=== PATIENT | male | born 1965 | race African-American/Black ===

== ENCOUNTER 2017-05-17 21:27 | Inpatient (IN) | payer SELFPAY ==
[~2017-05-17] VITALS: Ht 172.7 cm; Wt 87.6 kg
--- NOTE | ~2017-05-17 | CON ---
[place], [place] REPORT OF CONSULTATION NAME: JUSTIN GIBSON UNIT #: [id number] ROOM: 412 DOCTOR: KIERA CORNELIUS MD BIRTHDATE: [birth year] DOS: 05/18/2017 REQUESTING PHYSICIAN: Dr. Araujo INDICATION: Chest pain. ASSESSMENT: 1. Current presentation with chest pain, severe, and sudden onset. 2. History of similar presentation 4 years ago with known acute pericarditis. 3. Active tobacco abuse. 4. Chills with decreased appetite and weight loss. 5. Hypertension. 6. Hyperlipidemia. 7. Obesity with probable obstructive sleep apnea. PLAN: 1. Cycle cardiac enzymes. 2. Check sed rate. 3. Check CRP. 4. Initiate Naprosyn mg q. 8 hours. 5. Echocardiogram. 6. Stress test will be considered after above results are available and can be done as an outpatient. 7. Lipid management for an LDL less than 100 mg/dL. 8. Smoking cessation was emphasized. 9. Consider sleep study. 10. Early followup as an outpatient within 2-4 weeks upon discharge. HISTORY AND PHYSICAL: The patient is a pleasant 51-year-old -Portuguese gentleman unknown to our practice, was referred for Dr. Araujo for further evaluation of complaint of chest pain. Apparently, this woke up the patient yesterday. It was severe from the beginning; the pain was almost 7-8/10, continued even until now, slightly improved when patient went to the Emergency Room after taking some medication; he is not sure of exactly what was it. The patient though had a nitroglycerin patch. No sublingual nitroglycerin was given. The patient prior to that had been doing relatively well. He does not follow a regular exercise program, but easily can walk more than a mile without any provoked cardiac complaint. He sleeps on one pillow with no reported PND, orthopnea or pedal edema. Never had any symptomatic palpitation or associated dizziness, lightheadedness, or near syncope. The patient has been reporting some decrease in appetite with weight loss over the past few months. Weak, tired, no energy. The pain does slightly worsen with deep inspiration, but does not improve with leaning forward or get worse with lying flat on his back. PAST MEDICAL HISTORY: As detailed in my assessment. SOCIAL HISTORY: The patient continues to smoke, has been doing this for the past 22 years about 1 pack a day. No history of heavy alcohol or illicit drug abuse. [place], [place] REPORT OF CONSULTATION NAME: JUSTIN GIBSON UNIT #: [id number] ROOM: 412 DOCTOR: KIERA CORNELIUS MD BIRTHDATE: [birth year] FAMILY HISTORY: The mother of a stroke. His father of prostate cancer, possible bypass with his father but unsure exactly of the age. He has one older sister with no heart problems. CURRENT MEDICATIONS: Lisinopril, hydrochlorothiazide, vitamin D, Protonix, Bentyl, Ativan, Restoril, Zofran. ALLERGIES: The patient has no known drug allergies. REVIEW OF SYSTEMS: Currently, the patient denies any headache, diplopia or blurry vision. No fever, no night sweats. The patient admits to chills, though. The patient did have abdominal pain on presentation, but no current abdominal pain, no bright blood per rectum, no tarry stools. The patient admits to joint pain, but no muscular pain. No anxiety, no depression. No polyuria, no polydipsia. No skin rash. Review of all other systems has been negative. PHYSICAL EXAMINATION: GENERAL: The patient is alert, oriented x3, quite pleasant, sitting up in bed in no apparent distress. VITAL SIGNS: Blood pressure 130/80, heart rate 83, respiratory rate of 14, temperature 97.7. HEENT: Extraocular muscles intact. Pupils equal, round, reactive to light. Conjunctivae, no pallor. Throat, no petechiae. NECK: Good upstroke. Unable to appreciate any bruit. No lymphadenopathy, no thyromegaly. HEART: S1, S2 with a faint holosystolic murmur at the left upper sternal border. No rub, no sternal heave. CHEST AND BACK: No deformities. LUNGS: Clear to auscultation. Good air movement. No wheezing, rales. ABDOMEN: Obese, soft, nontender, present bowel sounds, no masses, no bruits. LOWER EXTREMITIES: There is no edema with good distal pulses. NEUROLOGIC: Grossly nonfocal. SKIN: No significant rash. Electrocardiogram showing normal sinus rhythm with poor R-wave progression, mild nonspecific ST-T changes throughout the EKG. LABORATORY DATA: White count 4.6, hemoglobin 13.1, potassium 3.6, creatinine 0.7, GFR more than 60%. Hemoglobin A1c 5.9. Troponin less than 0.015. Vitamin D 14. Free thyroxine is normal. Folate 7.3. [place], [place] REPORT OF CONSULTATION NAME: JUSTIN GIBSON UNIT #: [id number] ROOM: 412 DOCTOR: KIERA CORNELIUS MD BIRTHDATE: [birth year] KIERA CORNELIUS MD CM:CONSTR:REPORT OF CONSULTATION 1143 05/19/17 0108 interface
--- NOTE | ~2017-05-17 | O ---
[place], [place] OPERATIVE NOTE NAME: JUSTIN GIBSON UNIT #: [id number] ROOM: 412 DOCTOR: VER[facility] BIRTH[facility] [birth year] DOS: GASTRO-ENDOSCOPIC REPORT. REPORT #1 INDICATIONS: The patient presented with epigastric pain with chief complaint of blood in stool, undergoing investigation. PROCEDURE: Today's procedure part of investigation is panendoscopy and colonoscopy. PREMEDICATION: Versed and Diprivan. SCOPE: Olympus forward-viewing colonoscope 10L video. REPORT: After putting the patient in the left lateral position and after application of lubricant to rectal pouch and digital examination, scope was introduced. Thereafter, under direct visualization, I advanced through the length of colon without difficulty. The mid ascending colon we were able to visualize, otherwise there was solid stool beyond this point. A short segment of 5 cm length in sigmoid colon with ____ folds was noticed and there was no necrosis, no ulceration. Biopsy obtained. This could have been contributed of noticing blood in the stool. The patient extubated after that and photographed and tolerated the procedure well. IMPRESSION: Short segment nonspecific segmental colitis of sigmoid colon, status post biopsy, does not require any specific treatment. REPORT #2 INDICATIONS: The patient has presented with epigastric abdominal pain, atypical chest pain. The patient with history of heavy alcohol consumption with blood alcohol level of 240+, admitted. The patient's H and H have not compromised. The patient has been complaining of abdominal pain; however. His ____ alcohol level was high. His C-reactive protein was normal. His troponin was unremarkable. Chest x-ray was no active disease. CBC differential was reassessed, platelet count is 151. PAST MEDICAL HISTORY: Hypertension, right knee arthritis. PAST SURGICAL HISTORY: Cholecystectomy. SOCIAL HISTORY: Smoker, alcohol consumer. FAMILY HISTORY: Noncontributory. ALLERGIES: To no known medications. MEDICATIONS: Lisinopril and hydrochlorothiazide. [place], [place] OPERATIVE NOTE NAME: JUSTIN GIBSON UNIT #: [id number] ROOM: 412 DOCTOR: VER[facility] BIRTHDATE: [birth year] PROCEDURE: Today's procedure part of investigation of epigastric pain is panendoscopy plus biopsy. PREMEDICATION: Versed and Diprivan. SCOPE: Olympus forward-viewing gastroscope Q10 video. REPORT: After putting the patient in the left lateral position and after application of lubricant to the scope, the scope was introduced. Thereafter, under direct visualization, I advanced through the length of the esophagus without difficulty. Gastric pouch was entered. Gastritis seen. Antral biopsy was obtained. Duodenal bulb, second and third part within normal limits. The patient extubated, tolerated procedure well. IMPRESSION: Gastritis, status post biopsy. PLAN AND DISCUSSION: Protonix 40 mg every day p.o. would suffice. We are going to start him on a regular diet. He is going to be receiving some detox precaution modalities and then clinical reassessment. Thank you very much indeed. ARLENE GILLESPIE MD CM:OPRECORD:OPERATIVE NOTE 1540 05 ARLENE GILLESPIE MD 05/18/172205 interface
[2017-05-17 21:27] VITALS: BP 163/98
[~2017-05-17 21:27] MED LIST: VICODIN ES 7501 TAB PO
[2017-05-17 21:42] LABS: BASO % 0.7 % (0.0-1.0); EOS # 0.3 10*3/uL (0.0-0.4); EOS % 4.8 % (1.0-4.0); HEMATOCRIT 42.9 % (42.0-52.0); HEMOGLOBIN 14.3 g/dl (14.0-18.0); LYMPH # 2.7 10*3/uL (1.3-4.4); LYMPH % 48.1 % (27.0-41.0); MEAN CELL VOLUME 97.5 fl (80.0-94.0); MEAN CORPUSCULAR HGB 32.5 pg (27.0-31.0); MEAN CORPUSCULAR HGB CONC 33.3 g/dl (33.0-37.0); MEAN PLATELET VOLUME 9.5 fl (9.6-12.3); MONO # 0.4 10*3/uL (0.1-1.0); MONO % 6.2 % (3.0-9.0); NEUT # 2.3 10*3/uL (2.3-7.9); PLATELET COUNT AUTOMATED 177 10*3/uL (130-400); RED CELL DISTRI WIDTH 14.4 % (0-14.5); WHITE BLOOD COUNT 5.7 10*3/uL (4.8-10.8)
[2017-05-17 21:52] LABS: ACT PARTIAL THROMBO TIME 26.1 SECONDS (20.8-31.5); INTERNATIONAL NORM RATIO 0.9 (2.0-3.5)
[2017-05-17 21:59] LABS: ALBUMIN 3.8 gm/dl (3.1-4.5); ALKALINE PHOSPHATASE 91 U/L (45-117); BUN 11 mg/dl (7-24); CHLORIDE 105 mmol/L (98-107); CREATININE 0.89 mg/dL (0.70-1.30); MAGNESIUM 1.7 mg/dL (1.5-2.1); SGOT/AST 50 IU/L (3-35); SGPT/ALT 33 U/L (12-78); SODIUM 141 mmol/L (136-145); TOTAL PROTEIN 7.8 gm/dL (6.4-8.2); TROPONIN I < 0.015 ng/ml (<0.045)
[2017-05-17 22:00] VITALS: BP 152/90
[2017-05-17 23:00] VITALS: BP 148/89
--- NOTE | 2017-05-17 23:26 | NUR ---
A 51, admitted to , under the services of ADI Salmon DO with a diagnosis of CHEST PAIN. Chief complaint is CHEST PAIN. Patient arrived via bed from ER. Monitor applied. Initial assessment completed. Vital signs taken and recorded. ADI SALMON DO notified of admission to the unit. Orders received. See assessment for past medical history, medications and allergies. Patient and/or family oriented to unit. [facility] reviewed. Clothing/patient valuable form completed. PAT DANIEL
[2017-05-17] MEDS ORDERED: HYDR25T PO (23:58)
[2017-05-17] MEDS ORDERED: LISINOPRIL20 MG PO (23:58)
[2017-05-18] VITALS (9 sets, daily range): BP systolic 130–158; BP diastolic 80–102
[2017-05-18 00:46] LABS: URINE AMPHETAMINES < 1000 (1000ng/ml); URINE BARBITURATES < 200 (200ng/ml); URINE BENZODIAZEPINES < 200 (200ng/ml); URINE CANNABINOIDS (THC) < 50 (50ng/ml); URINE COCAINE < 300 (300ng/ml); URINE METHADONE < 300 (300ng/ml); URINE OPIATES < 300 (300ng/ml)
[2017-05-18 00:47] LABS: URINE PHENCYCLIDINE < 25 (25ng/ml)
--- NOTE | 2017-05-18 01:00 | NUR ---
PT. REQUESTED THAT I CONTACT HIS COUSIN SUE IN THE MORNING TO LET HER KNOW THAT HE IS HERE, AND TO PASS ALONG THE PASSCODE THAT HE PROVIDED US WITH TO HIS KIDS.
--- NOTE | 2017-05-18 01:33 | NUR ---
SPOKE WITH DR. NEFF AT THIS TIME REGARDING THIAMINE ORDER THAT IS CURRENTLY NOT IN PYXIS. DR. NEFF STATED THAT THIS MED CAN BE HELD OFF UNLESS THE PT. HAS DT'S.
[2017-05-18 04:13] LABS: BASO % 0.7 % (0.0-1.0); EOS # 0.3 10*3/uL (0.0-0.4); EOS % 7.4 % (1.0-4.0); HEMATOCRIT 38.4 % (42.0-52.0); HEMOGLOBIN 13.1 g/dl (14.0-18.0); LYMPH # 2.5 10*3/uL (1.3-4.4); MEAN CELL VOLUME 97.5 fl (80.0-94.0); MEAN CORPUSCULAR HGB 33.2 pg (27.0-31.0); MEAN CORPUSCULAR HGB CONC 34.1 g/dl (33.0-37.0); MEAN PLATELET VOLUME 8.8 fl (9.6-12.3); MONO # 0.3 10*3/uL (0.1-1.0); MONO % 7.2 % (3.0-9.0); NEUT # 1.4 10*3/uL (2.3-7.9); NEUT % 30.5 % (47.0-73.0); PLATELET COUNT AUTOMATED 151 10*3/uL (130-400); RED BLOOD COUNT 3.94 10*6/uL (4.50-5.90); RED CELL DISTRI WIDTH 14.4 % (0-14.5); WHITE BLOOD COUNT 4.6 10*3/uL (4.8-10.8)
[2017-05-18 04:43] LABS: ALBUMIN 3.5 gm/dl (3.1-4.5); ALKALINE PHOSPHATASE 76 U/L (45-117); BUN 11 mg/dl (7-24); CHLORIDE 107 mmol/L (98-107); CREATININE 0.72 mg/dL (0.70-1.30); FREE T4 0.81 ng/dl (0.76-1.46); MAGNESIUM 1.7 mg/dL (1.5-2.1); PHOSPHOROUS 4.8 mg/dL (2.5-4.9); POTASSIUM 3.6 mmol/L (3.5-5.1); SGOT/AST 46 IU/L (3-35); SGPT/ALT 26 U/L (12-78); SODIUM 145 mmol/L (136-145)
[2017-05-18 04:45] LABS: ACT PARTIAL THROMBO TIME 26.6 SECONDS (20.8-31.5)
[2017-05-18 06:37] LABS: VITAMIN D, 25-HYDROXY 14.7 ng/mL (30-100)
--- NOTE | 2017-05-18 08:40 | NUR ---
Skin Carver in to talk to patient. Patient states lives at HOME ALONE with . There are 16 steps in the home. Physician: [facility]acy: [facility] [place] Home health services: NONE Patient's level of ADLs: INDEPENDENT Patient has working utilities: YES DME: NONE Follow-up physician's appointment after d/c: Does patient want to access PORTAL?: Discharge plan HOME. YAMILETH LEDEZMA
--- NOTE | 2017-05-18 12:30 | NUR ---
PT LEFT FLOOR TO SURGERY FOR EGD, AND COLO. NOTIFIED PROCESS DESIGNER.
--- NOTE | 2017-05-18 13:05 | NUR ---
Patient not available for echo. He is in surgery for other proedure.
--- NOTE | 2017-05-18 16:30 | NUR ---
PATIENT RETURNED TO FLOOR FROM [facility]. PATIENT AWAKE, ALERT AND ORINTED.
--- NOTE | 2017-05-18 18:42 | NUR ---
PT GIVEN PRN NARCO FOR PAIN. WILL CONTINUE TO MONITOR PT.
[2017-05-19] VITALS: BP 146/88
--- NOTE | 2017-05-19 00:03 | NUR ---
PT. REQUESTED PAIN MEDICATION FOR PAIN RATED 7/10. WILL EVALUATE EFFECTIVENESS.
[2017-05-19 05:49] LABS: ALBUMIN 3.2 gm/dl (3.1-4.5); BUN 16 mg/dl (7-24); CHLORIDE 102 mmol/L (98-107); POTASSIUM 3.5 mmol/L (3.5-5.1); SODIUM 141 mmol/L (136-145)
[2017-05-19 05:53] LABS: ALKALINE PHOSPHATASE 70 U/L (45-117); BASO % 0.4 % (0.0-1.0); CREATININE 0.76 mg/dL (0.70-1.30); EOS # 0.2 10*3/uL (0.0-0.4); EOS % 5.2 % (1.0-4.0); HEMATOCRIT 38.1 % (42.0-52.0); HEMOGLOBIN 12.8 g/dl (14.0-18.0); LYMPH % 43.2 % (27.0-41.0); MEAN CELL VOLUME 97.2 fl (80.0-94.0); MEAN CORPUSCULAR HGB 32.7 pg (27.0-31.0); MEAN CORPUSCULAR HGB CONC 33.6 g/dl (33.0-37.0); MEAN PLATELET VOLUME 10.7 fl (9.6-12.3); MONO # 0.4 10*3/uL (0.1-1.0); MONO % 8.4 % (3.0-9.0); NEUT % 42.8 % (47.0-73.0); PLATELET COUNT AUTOMATED 148 10*3/uL (130-400); RED BLOOD COUNT 3.92 10*6/uL (4.50-5.90); SGOT/AST 44 IU/L (3-35); SGPT/ALT 28 U/L (12-78); TOTAL PROTEIN 6.7 gm/dL (6.4-8.2); WHITE BLOOD COUNT 4.7 10*3/uL (4.8-10.8)
[2017-05-19 06:09] LABS: HEPATITIS B SURFACE AG Negative (Negative); HEPATITIS C VIRUS ANTIBODY <0.1 s/co (0.0-0.9)
[2017-05-19 08:00] VITALS: BP 120/90
[2017-05-19 08:30] VITALS: BP 158/92
--- NOTE | 2017-05-19 08:30 | NUR ---
MANUAL RECHECK OF BP 158/92.
--- NOTE | 2017-05-19 08:36 | NUR ---
MEDICATED PO NORCO FOR C/O EPIGASTRIC AND ABDOMINAL PAIN. RATES PAIN 7/10.
--- NOTE | 2017-05-19 10:00 | NUR ---
NO FURTHER C/O STATES NORCO EFFECTIVE.
[2017-05-19 12:00] VITALS: BP 120/100
--- NOTE | 2017-05-19 14:30 | NUR ---
FLU VACCINE OFFERED TO PT BUT HE STATES HE WANTS IT ON DISCHARGE.
--- NOTE | 2017-05-19 14:45 | NUR ---
MEDICATED PO NORCO FOR C/O ABDOMINAL PAIN.
[2017-05-19] MEDS ORDERED: NAPROSYN500 MG PO (15:16)
[2017-05-19] MEDS ORDERED: VITAMIN D31000 UNIT PO (15:16)
[2017-05-19] MEDS ORDERED: PROTONIX40 MG PO (15:18)
--- NOTE | 2017-05-19 16:00 | NUR ---
Discharge instructions reviewed with patient. Patient receptive and verbalizes understanding. Follow-up care understood. Written instructions given to patient. pt understands to grain picker electronically sent rx from pharmacy. understands d/c instructions flu vaccine given right deltoid, information sheet given. pt without quetions at this time. discharge complete STEFFANY CHAUDHARY
[2017-05-19 16:31] VITALS: BP 135/86
== END 2017-05-19 16:00 | disposition home or self-care (01) | DRG 379 ==
LOC: ED 21:27 → 4E 22:04 → EDHOLD 22:04 → 4E 22:40
PROVIDERS: Emergency Medicine; Internal Medicine; ADMIT Internal Medicine
DX: K92.2 Gastrointestinal hemorrhage, unspecified (principal); I10 Essential (primary) hypertension; F17.200 Nicotine dependence, unspecified, uncomplicated; K29.70 Gastritis, unspecified, without bleeding; K52.9 Noninfective gastroenteritis and colitis, unspecified; E78.5 Hyperlipidemia, unspecified; G47.33 Obstructive sleep apnea (adult) (pediatric); E66.9 Obesity, unspecified; R63.4 Abnormal weight loss; R07.89 Other chest pain; R73.9 Hyperglycemia, unspecified; E87.6 Hypokalemia; J30.2 Other seasonal allergic rhinitis; M17.11 Unilateral primary osteoarthritis, right knee; Z80.42 Family history of malignant neoplasm of prostate; Z71.6 Tobacco abuse counseling; Z90.49 Acquired absence of other specified parts of digestive tract; Z82.3 Family history of stroke; Z68.30 Body mass index [BMI] 30.0-30.9, adult

== ENCOUNTER 2017-07-25 11:34 | Inpatient (IN) | payer SELFPAY ==
[~2017-07-25] VITALS: Ht 175.2 cm; Wt 88.5 kg
[~2017-07-25 11:34] MED LIST changes: +HYDR25T PO; +LISINOPRIL20 MG PO; +NAPROSYN500 MG PO; +PROTONIX40 MG PO; +VITAMIN D31000 UNIT PO
[2017-07-25 12:03] VITALS: BP 146/92
[2017-07-25 12:46] LABS: BASO % 0.6 % (0.0-1.0); EOS # 0.1 10*3/uL (0.0-0.4); EOS % 1.2 % (1.0-4.0); HEMATOCRIT 43.8 % (42.0-52.0); HEMOGLOBIN 14.9 g/dl (14.0-18.0); LYMPH # 2.5 10*3/uL (1.3-4.4); LYMPH % 37.6 % (27.0-41.0); MEAN CELL VOLUME 95.6 fl (80.0-94.0); MEAN CORPUSCULAR HGB 32.5 pg (27.0-31.0); MEAN PLATELET VOLUME 9.6 fl (9.6-12.3); MONO # 0.5 10*3/uL (0.1-1.0); MONO % 7.2 % (3.0-9.0); NEUT # 3.5 10*3/uL (2.3-7.9); NEUT % 53.1 % (47.0-73.0); PLATELET COUNT AUTOMATED 201 10*3/uL (130-400); RED BLOOD COUNT 4.58 10*6/uL (4.50-5.90); RED CELL DISTRI WIDTH 14.3 % (0-14.5); WHITE BLOOD COUNT 6.6 10*3/uL (4.8-10.8)
--- NOTE | 2017-07-25 12:47 | NUR ---
PT REMAINS W/O ACUTE DISTRESS NOTED AWAITING ALL RESULTS FOR ADDITIONAL PLAN OF CARE,PT POSITIONED FOR COMFORT AND NO ADDITIONAL COMPLAINTS VOICED.
[2017-07-25 13:01] LABS: ALBUMIN 3.9 gm/dl (3.1-4.5); ALKALINE PHOSPHATASE 91 U/L (45-117); BUN 13 mg/dl (7-24); CHLORIDE 106 mmol/L (98-107); CREATININE 0.68 mg/dL (0.70-1.30); POTASSIUM 3.3 mmol/L (3.5-5.1); SGOT/AST 44 IU/L (3-35); SGPT/ALT 25 U/L (12-78); SODIUM 143 mmol/L (136-145); TOTAL PROTEIN 8.1 gm/dL (6.4-8.2)
[2017-07-25 13:42] VITALS: BP 138/88
--- NOTE | 2017-07-25 13:45 | NUR ---
PT EATING AND TAKING FLUIDS WHILE IN ED WITH FAMILY @ BEDSIDE,SAFETY PRECAUTIONS INTACT AND CALL LIGHT WITHIN REACH.
--- NOTE | 2017-07-25 15:15 | NUR ---
LACTIC ACID @ 4.2,BELLE PUCKETT PA-C NOTIFIED.
--- NOTE | 2017-07-25 15:27 | NUR ---
A 51, admitted to , under the services of XIAO Ballard DO with a diagnosis of PNEUMONITIS. Chief complaint is COUGH. Patient arrived via wheel chair from ER. Monitor applied. Initial assessment completed. Vital signs taken and recorded. XIAO BALLARD DO notified of admission to the unit. Orders received. See assessment for past medical history, medications and allergies. Patient and/or family oriented to unit. [facility] reviewed. Clothing/patient valuable form completed. DUSTY MEJÍA
[2017-07-25 16:00] VITALS: BP 154/94
--- NOTE | 2017-07-25 17:30 | NUR ---
PRN PAIN MED GIVEN FOR 8/10 HEADACHE.
--- NOTE | 2017-07-25 18:04 | NUR ---
PT HAS ALREADY HAD THE PNEUMOCOCCAL VACCINE THIS YEAR AND IS REFUSING THE FLU VACCINE AT THIS TIME.
--- NOTE | 2017-07-25 18:30 | NUR ---
PRN PAIN MED NOT EFFECTIVE, PT RATES HIS PAIN STILL 8/10, COMFORT MEASURES INITIATED. WILL MEDICATE WITH SOMETHUING STRONGER VINCENT.
[2017-07-25 20:00] VITALS: BP 150/81
--- NOTE | 2017-07-25 20:56 | NUR ---
PRN NORCO GIVEN FOR PT COMPLAINTS OF HEADACHE RATING IT 7/10. CALL LIGHT WITHIN REACH, WILL MONITOR
[2017-07-26] VITALS: BP 148/80; BP 152/92
--- NOTE | 2017-07-26 06:09 | NUR ---
PRN NORCO GIVEN FOR PT COMPLAINTS OF HEADACHE RATING IT A 6 OUT OF 10. CALL LIGHT WITHIN REACH, WILL MONITOR
[2017-07-26 06:26] LABS: BASO % 0.2 % (0.0-1.0); HEMATOCRIT 41.5 % (42.0-52.0); HEMOGLOBIN 14.3 g/dl (14.0-18.0); LYMPH # 0.7 10*3/uL (1.3-4.4); LYMPH % 14.3 % (27.0-41.0); MEAN CELL VOLUME 93.7 fl (80.0-94.0); MEAN CORPUSCULAR HGB 32.3 pg (27.0-31.0); MEAN CORPUSCULAR HGB CONC 34.5 g/dl (33.0-37.0); MEAN PLATELET VOLUME 9.9 fl (9.6-12.3); MONO % 0.9 % (3.0-9.0); NEUT # 3.9 10*3/uL (2.3-7.9); NEUT % 83.7 % (47.0-73.0); PLATELET COUNT AUTOMATED 209 10*3/uL (130-400); RED BLOOD COUNT 4.43 10*6/uL (4.50-5.90); RED CELL DISTRI WIDTH 13.9 % (0-14.5); WHITE BLOOD COUNT 4.6 10*3/uL (4.8-10.8)
[2017-07-26 07:04] LABS: BUN 11 mg/dl (7-24); CHLORIDE 102 mmol/L (98-107); CREATININE 0.79 mg/dL (0.70-1.30); POTASSIUM 4.1 mmol/L (3.5-5.1); SODIUM 139 mmol/L (136-145)
[2017-07-26 07:10] LABS: THYROID STIM HORMONE (HS) 0.266 uIU/ml (0.358-4.75)
[2017-07-26 08:00] VITALS: BP 162/80
--- NOTE | 2017-07-26 08:30 | NUR ---
Senior Accounting Analyst in to talk to patient. Patient states lives at home alone. There are 13 steps in the home. Physician: no family physician Pharmacy: [facility] Home health services: none Patient's level of ADLs: INDEPENDENT Patient has working utilities: no he doesn't have water at the moment. He is hoping to work on the pipes this weekend. DME: none Follow-up physician's appointment after d/c: will be made by hospitalist nurse director upon discharge Does patient want to access PORTAL?: no Discharge plan discussed with patient. He lives home alone. He is independent in his ADLs and ambulation. Spoke to Jo Ann in the hospitalist office regarding giving the patient a list of physicians. He currently doesn't have water at home. He is hoping to be able to work on the water pipes this weekend. Denies any home needs. When medically stable he will be discharged to home. ADAL HUITRON
[2017-07-26 08:32] LABS: VITAMIN D, 25-HYDROXY 8.7 ng/mL (30-100)
--- NOTE | 2017-07-26 09:19 | NUR ---
MEDICATED PO ORDERED PER PT REQUESTW ITH TYLENOL FOR C/O GARSIA. SEE EMAR. MED REC UPDATED WITH PT.
--- NOTE | 2017-07-26 10:08 | NUR ---
PT CONTINUES TO C/O TEMPORAL GARSIA INCREASING WITH COUGH. MEDICATED PO ORDERED PER PT REQUESTW [facility] 1 TAB. SEE EMAR.
--- NOTE | 2017-07-26 10:30 | NUR ---
DR GONZALEZ INFORMED THAT HOME MEDS HAVE NOT BEEN ORDERED AT THIS TIME.
--- NOTE | 2017-07-26 11:30 | NUR ---
PT STATES MEDICATION EFFECTIVE IN RELIEVING GARSIA. WILL CONTINUE TO MONITOR.
[2017-07-26 12:00] VITALS: BP 160/92
[2017-07-26 13:00] VITALS: BP 151/79
--- NOTE | 2017-07-26 14:32 | NUR ---
MEDICATED PO ORDERED PER PT REQUEST WITH NORCO FOR CONTINUED TEMPORAL GARSIA. SEE EMAR.
--- NOTE | 2017-07-26 15:25 | NUR ---
AMBULATORY IN HALLS WITH .
--- NOTE | 2017-07-26 15:26 | NUR ---
AMBULATORY IN HALLS THIS SHIFT.
[2017-07-26 16:00] VITALS: BP 121/78
[2017-07-26 20:00] VITALS: BP 149/84
--- NOTE | 2017-07-26 21:13 | NUR ---
PRN NORCO GIVEN FOR PT COMPLAINTS OF A HEADACHE PRN TESSALON PERLE GIVEN FOR PT COMPLAINTS OF PERSISTANT COUGH. HEADACHE RATED 6/10. CALL LIGHT WITHIN REACH, WILL MONITOR
--- NOTE | 2017-07-26 22:00 | NUR ---
PRN MEDICATION APPEARS EFFECTIVE, PT SLEEPING
--- NOTE | 2017-07-26 23:00 | NUR ---
PRN MEDICATION APPEARS EFFECTIVE, PT SLEEPING
[2017-07-27] VITALS: BP 146/80; BP 149/93
--- NOTE | 2017-07-27 05:10 | NUR ---
PRN TESSALON PERLE AND NORCO GIVEN FOR PT COMPLAINTS OF HACKING COUGH AND HEADACHE 03/22. CALL LIGHT WITHIN REACH, WILL MONITOR
--- NOTE | 2017-07-27 06:23 | NUR ---
PRN MEDICATION APPEARS EFFECTIVE, PT SLEEPING
[2017-07-27 06:44] LABS: BASO % 0.1 % (0.0-1.0); HEMATOCRIT 39.9 % (42.0-52.0); LYMPH # 0.9 10*3/uL (1.3-4.4); LYMPH % 8.2 % (27.0-41.0); MEAN CELL VOLUME 94.3 fl (80.0-94.0); MEAN CORPUSCULAR HGB 33.1 pg (27.0-31.0); MEAN CORPUSCULAR HGB CONC 35.1 g/dl (33.0-37.0); MONO # 0.3 10*3/uL (0.1-1.0); MONO % 2.5 % (3.0-9.0); NEUT # 10.1 10*3/uL (2.3-7.9); NEUT % 88.6 % (47.0-73.0); PLATELET COUNT AUTOMATED 195 10*3/uL (130-400); RED BLOOD COUNT 4.23 10*6/uL (4.50-5.90); RED CELL DISTRI WIDTH 13.8 % (0-14.5); WHITE BLOOD COUNT 11.4 10*3/uL (4.8-10.8)
[2017-07-27 06:57] LABS: ALBUMIN 3.4 gm/dl (3.1-4.5); ALKALINE PHOSPHATASE 71 U/L (45-117); BUN 14 mg/dl (7-24); CHLORIDE 103 mmol/L (98-107); CREATININE 0.67 mg/dL (0.70-1.30); FREE T4 0.86 ng/dl (0.76-1.46); POTASSIUM 3.9 mmol/L (3.5-5.1); SGOT/AST 26 IU/L (3-35); SGPT/ALT 21 U/L (12-78); SODIUM 140 mmol/L (136-145); TOTAL PROTEIN 7.4 gm/dL (6.4-8.2)
--- NOTE | 2017-07-27 07:50 | NUR ---
DR GONZALEZ IN TO SEE PT.
--- NOTE | 2017-07-27 08:30 | NUR ---
Beet Flumer in to see patient. He is concerned if he is sent home on breathing treatments he will need a nebulizer. Spoke to Clarita, nurse director of the hospitalist, regarding his request. When medically stable he will be discharged to home.
--- NOTE | 2017-07-27 09:50 | NUR ---
MEDICATED PO ORDERED PER PT REQUEST [facility]AUNCE[facility] COTTRELL 1 TAB FOR C/O TEMPORAL GARSIA. SEE EMAR.
--- NOTE | 2017-07-27 10:30 | NUR ---
PAIN MEDICATION EFFECTIVE PER PT IN RELIEVING GARSIA. WILL CONTINUE TO MONITOR.
[2017-07-27] MEDS ORDERED: PREDNISONE10 MG PO (11:42)
[2017-07-27] MEDS ORDERED: ZITHROMAX250 MG PO (11:42)
[2017-07-27 12:00] VITALS: BP 134/85
--- NOTE | 2017-07-27 13:24 | NUR ---
Discharge instructions reviewed with patient/family. Patient receptive and verbalizes understanding. Follow-up care arranged. Written instructions given to patient/family. GALE CÁRDENAS
== END 2017-07-27 13:20 | disposition home or self-care (01) | DRG 871 ==
LOC: ED 11:34 → 4E 14:59 → EDHOLD 14:59 → 4E 15:21
PROVIDERS: Physician Assistant; Student in an Organized Health Care Education/Training Program; ADMIT Internal Medicine
DX: A41.9 Sepsis, unspecified organism (principal); J18.9 Pneumonia, unspecified organism; M17.11 Unilateral primary osteoarthritis, right knee; E87.6 Hypokalemia; D72.810 Lymphocytopenia; I10 Essential (primary) hypertension; J00 Acute nasopharyngitis [common cold]; Z79.899 Other long term (current) drug therapy; Z90.49 Acquired absence of other specified parts of digestive tract; Z80.42 Family history of malignant neoplasm of prostate; Z82.3 Family history of stroke; Z71.6 Tobacco abuse counseling

== ENCOUNTER → 2017-07-30 | Outpatient (CLI) | payer SELFPAY ==
[~2017-07-30] MED LIST changes: +PREDNISONE10 MG PO; +ZITHROMAX250 MG PO
== END | disposition home or self-care (01) ==
LOC: RESCLI 11:09
DX: Z09 Encounter for follow-up examination after completed treatment for conditions other than malignant neoplasm (principal); I10 Essential (primary) hypertension; K21.9 Gastro-esophageal reflux disease without esophagitis; J18.9 Pneumonia, unspecified organism; E55.9 Vitamin D deficiency, unspecified; Z71.6 Tobacco abuse counseling; Z72.0 Tobacco use

== ENCOUNTER → 2017-08-07 | Outpatient (CLI) | payer SELFPAY | END | disposition home or self-care (01) | LOC: RESCLI 02:11 | DX: I10 Essential (primary) hypertension (principal); E55.9 Vitamin D deficiency, unspecified; R00.0 Tachycardia, unspecified; R05 Cough; F17.210 Nicotine dependence, cigarettes, uncomplicated; Z71.6 Tobacco abuse counseling; Z90.49 Acquired absence of other specified parts of digestive tract ==

== ENCOUNTER 2018-01-28 11:50 | Emergency (ER) | payer OTHER ==
[~2018-01-28] VITALS: Ht 175.2 cm; Wt 93.0 kg
[2018-01-28] MEDS ORDERED: NAPROSYN500 MG PO (11:56)
== END 2018-01-28 12:00 | disposition home or self-care (01) ==
LOC: ED 11:50
DX: M25.562 Pain in left knee (principal); I10 Essential (primary) hypertension; M13.861 Other specified arthritis, right knee; Z79.899 Other long term (current) drug therapy; W18.40XA Slipping, tripping and stumbling without falling, unspecified, initial encounter; Y93.89 Activity, other specified; Y92.89 Other specified places as the place of occurrence of the external cause; Y99.8 Other external cause status

== ENCOUNTER → 2018-03-01 | Outpatient (CLI) | payer OTHER ==
[~2018-03-01] MED LIST changes: +ASPIRIN ADULT L81 M2 PO; +B12100 MC1 PO; +METOPROLOL SUCC25 M2 PO; +NATURE'S BLEND F1 MG PO; +TYLENOL325 M1 PO; +VITAMIN D-32000 UNIT PO; +XARE20MG PO
--- NOTE | ~2018-03-01 | EKG ---
[place], [place] ELECTROCARDIOGRAM REPORT NAME: JUSTIN GIBSON UNIT #: [id number] ROOM: DOCTOR: EPIPHANY DRAFT REPORT BIRTHDATE: [birth year] [facility] Test Date: 2018-03-01 Test Time: 16:51:18 Pat Name: JUSTIN GIBSON Department: Room: Gender: Firearms Assembly Supervisor: : 1965 Requested By: JOSE JUAN NIETO Order Number: [id number] Reading MD: Axel Jolly MD Measurements Intervals [place] Rate: 92 P: 67 AR: 157 QRS: 34 QRSD: 76 T: 32 QT: 348 QTc: 431 Interpretive Statements Sinus rhythm ST elev, probable normal early repol pattern Electronically Signed On 03-04-2018 18:39:49 PDT by Axel Jolly MD CM:EKGRPT:ELECTROCARDIOGRAM REPORT 1651 1839 JOSE JUAN GONZALEZ DRAFT REPORT JOSE JUAN NIETO
[2018-03-01 16:48] LABS: BILIRUBIN NEGATIVE (NEGATIVE); BLOOD 1+ (NEGATIVE); CLARITY CLEAR (CLEAR); COLOR YELLOW (YELLOW); GLUCOSE NEGATIVE (NEGATIVE); KETONE NEGATIVE (NEGATIVE); LEUKO ESTERASE NEGATIVE (NEGATIVE); NITRITE NEGATIVE (NEGATIVE); SPECIFIC GRAVITY 1.025 (1.005-1.030); UROBILINOGEN 0.2 E.U./dl (0.2-1.0)
[2018-03-01 16:55] LABS: BACTERIA TRACE; EPITHELIAL CELLS 0-2; WBC 0-2 wbc/hpf (0-5)
[2018-03-01 17:12] LABS: BASO % 0.4 % (0.0-1.0); EOS # 0.1 10*3/uL (0.0-0.4); EOS % 1.6 % (1.0-4.0); HEMATOCRIT 44.3 % (42.0-52.0); HEMOGLOBIN 15.1 g/dl (14.0-18.0); LYMPH # 1.9 10*3/uL (1.3-4.4); LYMPH % 34.2 % (27.0-41.0); MEAN CELL VOLUME 98.9 fl (80.0-94.0); MEAN CORPUSCULAR HGB 33.7 pg (27.0-31.0); MEAN CORPUSCULAR HGB CONC 34.1 g/dl (33.0-37.0); MONO # 0.5 10*3/uL (0.1-1.0); MONO % 9.5 % (3.0-9.0); NEUT % 54.1 % (47.0-73.0); PLATELET COUNT AUTOMATED 166 10*3/uL (130-400); RED BLOOD COUNT 4.48 10*6/uL (4.50-5.90); RED CELL DISTRI WIDTH 14.8 % (0-14.5); WHITE BLOOD COUNT 5.5 10*3/uL (4.8-10.8)
[2018-03-01 17:27] LABS: ALBUMIN 4.2 gm/dl (3.1-4.5); ALKALINE PHOSPHATASE 77 U/L (45-117); BUN 22 mg/dl (7-24); CHLORIDE 103 mmol/L (98-107); CREATININE 1.01 mg/dL (0.70-1.30); POTASSIUM 3.6 mmol/L (3.5-5.1); SGOT/AST 39 IU/L (3-35); SGPT/ALT 51 U/L (12-78); SODIUM 141 mmol/L (136-145); TOTAL PROTEIN 8.6 gm/dL (6.4-8.2)
== END | disposition home or self-care (01) ==
LOC: LAB 16:18
PROVIDERS: Orthopaedic Surgery
DX: Z01.818 Encounter for other preprocedural examination (principal); S83.242D Other tear of medial meniscus, current injury, left knee, subsequent encounter; M17.12 Unilateral primary osteoarthritis, left knee; X58.XXXD Exposure to other specified factors, subsequent encounter

== ENCOUNTER → 2018-05-07 | Outpatient (CLI) | payer OTHER, BC ==
[2018-05-07 16:32] LABS: BILIRUBIN 1+ (NEGATIVE); BLOOD 1+ (NEGATIVE); CLARITY CLEAR (CLEAR); COLOR YELLOW (YELLOW); GLUCOSE NEGATIVE (NEGATIVE); KETONE NEGATIVE (NEGATIVE); LEUKO ESTERASE NEGATIVE (NEGATIVE); NITRITE NEGATIVE (NEGATIVE); PH 5.5 (5.0-9.0); SPECIFIC GRAVITY >= 1.030 (1.005-1.030); UROBILINOGEN 0.2 E.U./dl (0.2-1.0)
[2018-05-07 16:34] LABS: BASO % 0.4 % (0.0-1.0); EOS # 0.1 10*3/uL (0.0-0.4); EOS % 2.1 % (1.0-4.0); HEMATOCRIT 43.8 % (42.0-52.0); HEMOGLOBIN 15.2 g/dl (14.0-18.0); LYMPH # 1.6 10*3/uL (1.3-4.4); LYMPH % 34.7 % (27.0-41.0); MEAN CELL VOLUME 99.1 fl (80.0-94.0); MEAN CORPUSCULAR HGB 34.4 pg (27.0-31.0); MEAN CORPUSCULAR HGB CONC 34.7 g/dl (33.0-37.0); MEAN PLATELET VOLUME 9.9 fl (9.6-12.3); MONO # 0.5 10*3/uL (0.1-1.0); MONO % 11.1 % (3.0-9.0); NEUT # 2.4 10*3/uL (2.3-7.9); NEUT % 51.5 % (47.0-73.0); PLATELET COUNT AUTOMATED 151 10*3/uL (130-400); RED BLOOD COUNT 4.42 10*6/uL (4.50-5.90); RED CELL DISTRI WIDTH 14.2 % (0-14.5); WHITE BLOOD COUNT 4.7 10*3/uL (4.8-10.8)
[2018-05-07 16:38] LABS: BACTERIA 1+; EPITHELIAL CELLS 0-2; MUCOUS TRACE; WBC 0-2 wbc/hpf (0-5)
[2018-05-07 16:48] LABS: ALKALINE PHOSPHATASE 71 U/L (45-117); BUN 16 mg/dl (7-24); CHLORIDE 109 mmol/L (98-107); CREATININE 1.08 mg/dL (0.70-1.30); POTASSIUM 3.8 mmol/L (3.5-5.1); SGOT/AST 35 IU/L (3-35); SGPT/ALT 30 U/L (12-78); SODIUM 142 mmol/L (136-145); TOTAL PROTEIN 8.8 gm/dL (6.4-8.2)
== END | disposition home or self-care (01) ==
LOC: LAB 16:16
PROVIDERS: Orthopaedic Surgery
DX: S83.242A Other tear of medial meniscus, current injury, left knee, initial encounter (principal); I10 Essential (primary) hypertension; X58.XXXA Exposure to other specified factors, initial encounter; Y93.89 Activity, other specified; Y92.89 Other specified places as the place of occurrence of the external cause; Y99.8 Other external cause status

== ENCOUNTER 2018-07-30 10:57 | Emergency (ER) | payer BC ==
[~2018-07-30] VITALS: Wt 81.6 kg
[2018-07-30 11:36] LABS: BASO # 0.1 10*3/uL (0.0-0.1); BASO % 0.7 % (0.0-1.0); EOS % 0.4 % (1.0-4.0); HEMATOCRIT 43.7 % (42.0-52.0); HEMOGLOBIN 15.1 g/dl (14.0-18.0); LYMPH # 2.3 10*3/uL (1.3-4.4); LYMPH % 34.6 % (27.0-41.0); MEAN CELL VOLUME 102.1 fl (80.0-94.0); MEAN CORPUSCULAR HGB 35.3 pg (27.0-31.0); MEAN CORPUSCULAR HGB CONC 34.6 g/dl (33.0-37.0); MEAN PLATELET VOLUME 9.4 fl (9.6-12.3); MONO # 0.9 10*3/uL (0.1-1.0); MONO % 12.6 % (3.0-9.0); NEUT # 3.5 10*3/uL (2.3-7.9); NEUT % 51.6 % (47.0-73.0); PLATELET COUNT AUTOMATED 191 10*3/uL (130-400); RED BLOOD COUNT 4.28 10*6/uL (4.50-5.90); RED CELL DISTRI WIDTH 15.1 % (0-14.5); WHITE BLOOD COUNT 6.7 10*3/uL (4.8-10.8)
[2018-07-30 11:58] LABS: ALBUMIN 4.1 gm/dl (3.1-4.5); ALKALINE PHOSPHATASE 78 U/L (45-117); BUN 11 mg/dl (7-24); CHLORIDE 110 mmol/L (98-107); CREATININE 0.83 mg/dL (0.70-1.30); POTASSIUM 3.7 mmol/L (3.5-5.1); SGOT/AST 148 IU/L (3-35); SGPT/ALT 175 U/L (12-78); SODIUM 144 mmol/L (136-145); TOTAL PROTEIN 8.6 gm/dL (6.4-8.2)
[2018-07-30 12:00] LABS: TROPONIN I < 0.015 ng/ml (<0.045)
[2018-07-30] MEDS ORDERED: ZITHROMAX250 MG PO (13:15)
== END 2018-07-30 13:21 | disposition home or self-care (01) ==
LOC: ED 10:57
PROVIDERS: Emergency Medicine
DX: J40 Bronchitis, not specified as acute or chronic (principal); R11.10 Vomiting, unspecified; I10 Essential (primary) hypertension; I25.2 Old myocardial infarction; F17.200 Nicotine dependence, unspecified, uncomplicated; Z79.82 Long term (current) use of aspirin; Z79.899 Other long term (current) drug therapy

== ENCOUNTER 2018-11-10 03:13 | Emergency (ER) | payer BC ==
[~2018-11-10] VITALS: Wt 86.2 kg
[2018-11-10] MEDS ORDERED: TESSALON PERLE100 MG PO (03:25)
[2018-11-10] MEDS ORDERED: CYCLOBENZAPRINE10 MG PO (03:25)
[2018-11-10] MEDS ORDERED: AMOXICILLIN500 M2 PO (03:25)
[2018-11-10] MEDS ORDERED: PREDNISONE50 MG PO (03:25)
[2018-11-10] MEDS ORDERED: AMOXICILLI400 MG/51 PO (03:37)
== END 2018-11-10 04:12 | disposition home or self-care (01) ==
LOC: ED 03:13
DX: J40 Bronchitis, not specified as acute or chronic (principal); H66.92 Otitis media, unspecified, left ear; I10 Essential (primary) hypertension; I25.2 Old myocardial infarction; F17.200 Nicotine dependence, unspecified, uncomplicated; Z90.49 Acquired absence of other specified parts of digestive tract; Z79.82 Long term (current) use of aspirin; Z79.899 Other long term (current) drug therapy

== ENCOUNTER 2018-12-31 20:38 | Emergency (ER) | payer BC ==
[~2018-12-31] VITALS: Ht 175.2 cm; Wt 81.6 kg
[~2018-12-31 20:38] MED LIST changes: +AMOXICILLI400 MG/51 PO; +AMOXICILLIN500 M2 PO; +CYCLOBENZAPRINE10 MG PO; +PREDNISONE50 MG PO; +TESSALON PERLE100 MG PO
[2018-12-31 22:24] LABS: BASO % 0.4 % (0.0-1.0); EOS # 0.1 10*3/uL (0.0-0.4); EOS % 1.3 % (1.0-4.0); HEMATOCRIT 42.5 % (42.0-52.0); HEMOGLOBIN 14.3 g/dl (14.0-18.0); LYMPH # 2.4 10*3/uL (1.3-4.4); LYMPH % 29.6 % (27.0-41.0); MEAN CELL VOLUME 105.7 fl (80.0-94.0); MEAN CORPUSCULAR HGB 35.6 pg (27.0-31.0); MEAN CORPUSCULAR HGB CONC 33.6 g/dl (33.0-37.0); MEAN PLATELET VOLUME 9.5 fl (9.6-12.3); MONO # 0.6 10*3/uL (0.1-1.0); MONO % 7.6 % (3.0-9.0); NEUT % 60.9 % (47.0-73.0); PLATELET COUNT AUTOMATED 207 10*3/uL (130-400); RED BLOOD COUNT 4.02 10*6/uL (4.50-5.90); RED CELL DISTRI WIDTH 13.9 % (0-14.5); WHITE BLOOD COUNT 8.2 10*3/uL (4.8-10.8)
[2018-12-31 22:42] LABS: ALBUMIN 3.4 gm/dl (3.1-4.5); ALKALINE PHOSPHATASE 84 U/L (45-117); BUN 4 mg/dl (7-24); CHLORIDE 102 mmol/L (98-107); CREATININE 0.74 mg/dL (0.70-1.30); POTASSIUM 3.3 mmol/L (3.5-5.1); SGOT/AST 42 IU/L (3-35); SGPT/ALT 69 U/L (12-78); SODIUM 139 mmol/L (136-145); TOTAL PROTEIN 8.3 gm/dL (6.4-8.2)
[2018-12-31] MEDS ORDERED: KETOROLAC10 MG PO (23:09)
== END 2018-12-31 23:31 | disposition home or self-care (01) ==
LOC: ED 20:38
PROVIDERS: Nurse Practitioner Family
DX: S02.69XA Fracture of mandible of other specified site, initial encounter for closed fracture (principal); I25.2 Old myocardial infarction; I10 Essential (primary) hypertension; F17.200 Nicotine dependence, unspecified, uncomplicated; Z79.2 Long term (current) use of antibiotics; Z79.899 Other long term (current) drug therapy; Z79.82 Long term (current) use of aspirin; Z86.711 Personal history of pulmonary embolism; Z90.49 Acquired absence of other specified parts of digestive tract; Y04.2XXA Assault by strike against or bumped into by another person, initial encounter; Y93.89 Activity, other specified; Y92.89 Other specified places as the place of occurrence of the external cause; Y99.8 Other external cause status

== ENCOUNTER 2019-02-09 15:07 | Inpatient (IN) | payer BC ==
[~2019-02-09] VITALS: Ht 175.3 cm; Wt 81.6 kg
--- NOTE | ~2019-02-09 | EKG ---
[place], [place] ELECTROCARDIOGRAM REPORT NAME: JUSTIN GIBSON UNIT #: [id number] ROOM: 504 DOCTOR: LISA DRAFT REPORT BIRTHDATE: [birth year] [facility] Test Date: 2019-02-09 Test Time: 15:12:49 Pat Name: JSUTIN GIBSON Department: Room: 504 Gender: M Entry Level Sales Consultant: : 1965 Requested By: ALAN GRACE Order Number: [id number] Reading MD: Fred Smith MD Measurements Intervals [place] Rate: 89 P: 61 [place]: 174 QRS: 20 QRSD: 80 T: 30 QT: 383 QTc: 467 Interpretive Statements Sinus rhythm Probable left atrial enlargement Compared to ECG 03/16/2018 03:59:46 ST (T wave) deviation no longer present Electronically Signed On 02-12-2019 12:02:47 PDT by Fred Smith MD CM:EKGRPT:ELECTROCARDIOGRAM REPORT 1512 1202 ALAN GONZALEZ DRAFT REPORT ALAN GRACE M.D.
--- NOTE | ~2019-02-09 | EKG ---
[place], [place] ELECTROCARDIOGRAM REPORT NAME: JUSTIN GIBSON UNIT #: [id number] ROOM: 504 DOCTOR: LISA DRAFT REPORT BIRTHDATE: [birth year] [facility] Test Date: 2019-02-09 Test Time: 21:24:28 Pat Name: JUSTIN GIBSON Department: Room: 504 Gender: M Chief Hydroelectric Station Operator: Sandie aGrg : 1965 Requested By: ALAN GRACE Order Number: [id number] Reading MD: Fred Smith MD Measurements Intervals [place] Rate: 85 P: 51 [place]: 183 QRS: 29 QRSD: 79 T: 32 QT: 384 QTc: 457 Interpretive Statements Sinus rhythm Probable left atrial enlargement ST elev, probable normal early repol pattern Compared to ECG 03/16/2018 03:59:46 No significant changes Electronically Signed On 02-12-2019 12:06:16 PDT by Fred Smith MD CM:EKGRPT:ELECTROCARDIOGRAM REPORT 23 1206 ALAN GONZALEZ DRAFT REPORT ALAN GRACE M.D.
--- NOTE | ~2019-02-09 | EKG ---
[place], [place] ELECTROCARDIOGRAM REPORT NAME: JUSTIN GIBSON UNIT #: [id number] ROOM: 504 DOCTOR: LISA DRAFT REPORT BIRTHDATE: [birth year] [facility] Test Date: 2019-02-10 Test Time: 04:39:18 Pat Name: JUSTIN GIBSON Department: Room: [facility] 2 Gender: M Second Crusher: Sandie Garg : 1965 Requested By: VELVET MENDEZ Order Number: [id number] Reading MD: Fred Smith MD Measurements Intervals [place] Rate: 71 P: 53 AR: 165 QRS: 33 QRSD: 79 T: 37 QT: 404 QTc: 439 Interpretive Statements Sinus rhythm Probable left atrial enlargement ST elev, probable normal early repol pattern Baseline wander in lead(s) V5,V6 Compared to ECG 03/16/2018 03:59:46 No significant changes Electronically Signed On 02-12-2019 12:20:04 PDT by Fred Smith MD CM:EKGRPT:ELECTROCARDIOGRAM REPORT [id number] 1220 VELVET KUMAR DRAFT REPORT VELVET MENDEZ DO
--- NOTE | ~2019-02-09 | EKG ---
[place], [place] ELECTROCARDIOGRAM REPORT NAME: JUSTIN GIBSON UNIT #: [id number] ROOM: 504 DOCTOR: LISA DRAFT REPORT BIRTHDATE: [birth year] [facility] Test Date: 2019-02-09 Test Time: 17:36:41 Pat Name: JUSTIN GIBSON Department: Room: 504 Gender: M Law Enforcement Director: Sandie Garg : 1965 Requested By: ALAN GRACE Order Number: [id number] Reading MD: Fred Smith MD Measurements Intervals [place] Rate: 82 P: 55 [place]: 175 QRS: 23 QRSD: 78 T: 32 QT: 394 QTc: 461 Interpretive Statements Sinus rhythm Probable left atrial enlargement ST elev, probable normal early repol pattern Compared to ECG 03/16/2018 03:59:46 No significant changes Electronically Signed On 02-12-2019 12:03:06 PDT by Fred Smith MD CM:EKGRPT:ELECTROCARDIOGRAM REPORT [id number] 1203 ALAN GONZALEZ DRAFT REPORT ALAN GRACE M.D.
--- NOTE | ~2019-02-09 | ST ---
[place], [place] EXERCISE STRESS TEST REPORT [id number] UNIT #: [id number] ROOM: 504 DOCTOR: NATALIA CHAN MD BIRTHDATE: [birth year] DOS: 02/10/2019 LEXISCAN STRESS EKG REPORT REFERRING PHYSICIAN: Dr. Hayes. INDICATION: Central chest pain. The patient underwent a standard protocol Lexiscan stress EKG. The patient's baseline EKG showed a sinus ganga with a heart rate of 56 with a blood pressure of 134/64. The patient's peak heart rate was 100 with a blood pressure 140/70. The patient had no chest pain, no ischemic changes, no arrhythmias noted. SUMMARY OF FINDINGS: Unremarkable Lexiscan stress EKG. Please see separate report for perfusion scan results. NATALIA CHAN MD CM:STRESS:EXERCISE STRESS TEST REPORT 1648 0315 NATALIA CHAN MD
[~2019-02-09 15:07] MED LIST changes: +KETOROLAC10 MG PO
[2019-02-09 15:16] VITALS: BP 105/70
[2019-02-09 15:25] LABS: BASO # 0.1 10*3/uL (0.0-0.1); BASO % 0.9 % (0.0-1.0); EOS # 0.3 10*3/uL (0.0-0.4); EOS % 5.1 % (1.0-4.0); HEMOGLOBIN 12.7 g/dl (14.0-18.0); LYMPH # 2.6 10*3/uL (1.3-4.4); LYMPH % 49.1 % (27.0-41.0); MEAN CELL VOLUME 106.7 fl (80.0-94.0); MEAN CORPUSCULAR HGB 35.7 pg (27.0-31.0); MEAN CORPUSCULAR HGB CONC 33.4 g/dl (33.0-37.0); MEAN PLATELET VOLUME 9.2 fl (9.6-12.3); MONO # 0.4 10*3/uL (0.1-1.0); MONO % 6.8 % (3.0-9.0); NEUT % 37.9 % (47.0-73.0); PLATELET COUNT AUTOMATED 187 10*3/uL (130-400); RED BLOOD COUNT 3.56 10*6/uL (4.50-5.90); RED CELL DISTRI WIDTH 13.5 % (0-14.5); WHITE BLOOD COUNT 5.3 10*3/uL (4.8-10.8)
[2019-02-09 15:36] LABS: ACT PARTIAL THROMBO TIME 26.3 SECONDS (20.0-32.1); INTERNATIONAL NORM RATIO 0.9 (2.0-3.5)
[2019-02-09 15:42] LABS: ALBUMIN 3.5 gm/dl (3.1-4.5); ALKALINE PHOSPHATASE 84 U/L (45-117); BUN 8 mg/dl (7-24); CHLORIDE 111 mmol/L (98-107); CREATININE 0.81 mg/dL (0.70-1.30); POTASSIUM 3.6 mmol/L (3.5-5.1); SGOT/AST 119 IU/L (3-35); SGPT/ALT 105 U/L (12-78); SODIUM 144 mmol/L (136-145); TOTAL PROTEIN 7.2 gm/dL (6.4-8.2)
[2019-02-09 15:44] LABS: TROPONIN I < 0.015 ng/ml (<0.045)
[2019-02-09 16:07] VITALS: BP 100/67
--- NOTE | 2019-02-09 16:09 | NUR ---
PT RESTING ON CART MONITOR RMAINS SINUS RHYTHM. WILL CONTINUE TO MONITOR. LAURA RODRIGES RN.
--- NOTE | 2019-02-09 16:55 | NUR ---
THE PATIENTS GIRLFRIEND CALLED ASKING ABOUT TEST RESULTS. I EXPLAINED TO HER I COULD NOT TELL HER ANY INFORMATION BUT I COULD TRANSFER THE PHONE AND LEFT HER TALK TO HER S.O.. AFTER TALKING WITH THE PATIENT HE GAVE PERMISSION FOR ME TO TALK WITH HER ABOUT HIS MEDICAL CONDITION. LAURA RODRIGES RN.
[2019-02-09 17:15] VITALS: BP 110/62
[2019-02-09 18:05] VITALS: BP 103/61
--- NOTE | 2019-02-09 18:05 | NUR ---
IT WAS EXPLAINED TO THE PATIENT AND HIS DAUGHTER THAT A CT OF CHEST WAS ORDERED THE PATIENT REMAINS SINUS RHYTHM . LAURA RODRIGES RN.
--- NOTE | 2019-02-09 18:50 | NUR ---
PT RETURN FROM CAT SCAN HE IS ABLE TO EAT AT THIS TIME. THE PATIENT REMAINS IN SINUS RHYTHM. HE VOICES NO CONCERNS AT THIS TIME. LAURA FLORES RN.
--- NOTE | 2019-02-09 20:00 | NUR ---
A 53, admitted to 5E, under the services of BENEDICTO Oneal DO with a diagnosis of CHEST PAIN R/O CA. Chief complaint is CHEST PAIN, SHORTNESS OF BREATHE. Patient arrived via bed from ER. Monitor applied. Initial assessment completed. Vital signs taken and recorded. BENEDICTO ONEAL DO notified of admission to the unit. Orders received. See assessment for past medical history, medications and allergies. Patient and/or family oriented to unit. [address] visitation policy reviewed. Clothing/patient valuable form completed. ISMAEL ALVA R
[2019-02-09 20:11] VITALS: BP 155/95
--- NOTE | 2019-02-09 22:00 | NUR ---
PT RESTING IN BED. IVF INFUSING WITH NO PROBLEM. MEDICATED [facility] PO PER PRN ORDER, SEE EMAR FOR ANXIETY. CALL LIGHT IN REACH.
[2019-02-10] VITALS (8 sets, daily range): BP systolic 130–161; BP diastolic 80–98
--- NOTE | 2019-02-10 00:10 | NUR ---
PT SLEEPING IN BED, RESP-EASY AND REGULAR. OXYGEN IN USE. IVF INFUSING WITH NO PROBLEM. CALL LIGHT IN REACH. SEE SHIFT ASSESSMENT.
--- NOTE | 2019-02-10 04:00 | NUR ---
PT SLEEPING IN BED. RESP-EASY AND REGULAR OXYGEN IN USE. IVF INFUSING WITH NO PROBLEM. CALL LIGHT IN REACH.
--- NOTE | 2019-02-10 04:15 | NUR ---
PT C/O CHEST PAIN, RATES PAIN 8 ON PAIN SCALE. BP 134/88 MANUALLY. HR-64, RESP-20. PULSE OX 99%2LITERS. MEDICATED WTIH ROBAXIN PER PRN ORDER, SEE EMAR. CALLED DR. MENDEZ MADE AWARE ORDERED STAT EKG AND TROPONIN LEVEL.
--- NOTE | 2019-02-10 04:18 | NUR ---
RESPIRATORY CALLED FOR EKG
[2019-02-10 04:39] LABS: BASO % 0.8 % (0.0-1.0); EOS # 0.2 10*3/uL (0.0-0.4); EOS % 5.4 % (1.0-4.0); HEMATOCRIT 37.8 % (42.0-52.0); HEMOGLOBIN 12.5 g/dl (14.0-18.0); LYMPH # 1.6 10*3/uL (1.3-4.4); LYMPH % 42.4 % (27.0-41.0); MEAN CELL VOLUME 106.8 fl (80.0-94.0); MEAN CORPUSCULAR HGB 35.3 pg (27.0-31.0); MEAN CORPUSCULAR HGB CONC 33.1 g/dl (33.0-37.0); MONO # 0.4 10*3/uL (0.1-1.0); MONO % 9.8 % (3.0-9.0); NEUT # 1.5 10*3/uL (2.3-7.9); NEUT % 41.3 % (47.0-73.0); PLATELET COUNT AUTOMATED 177 10*3/uL (130-400); RED BLOOD COUNT 3.54 10*6/uL (4.50-5.90); RED CELL DISTRI WIDTH 13.8 % (0-14.5); WHITE BLOOD COUNT 3.7 10*3/uL (4.8-10.8)
--- NOTE | 2019-02-10 04:45 | NUR ---
EKG ON THE FLOOR AND GOT EKG
--- NOTE | 2019-02-10 04:46 | NUR ---
PT STATES CHEST PAIN IS A LITTLE BETTER RATES PAIN 5 ON PAIN SCALE 0-10. CALL LIGHT IN REACH. WILL CALL DR. MENDEZ.
--- NOTE | 2019-02-10 04:47 | NUR ---
CALLED DR. MENDEZ AWARE EKG WAS DONE AND ELEVATION IN T WAVE FROM PREVIOUS. HE WILL TAKE A LOOK AT IT.
[2019-02-10 04:55] LABS: ALKALINE PHOSPHATASE 81 U/L (45-117); BUN 9 mg/dl (7-24); CHLORIDE 113 mmol/L (98-107); CHOLESTEROL 148 mg/dL (<200); CREATININE 0.69 mg/dL (0.70-1.30); HDL CHOLESTEROL 64 mg/dl (40-60); LDL CHOLESTEROL 73 mg/dL (9-159); PHOSPHOROUS 4.5 mg/dL (2.5-4.9); POTASSIUM 3.9 mmol/L (3.5-5.1); SGOT/AST 73 IU/L (3-35); SGPT/ALT 88 U/L (12-78); SODIUM 144 mmol/L (136-145); TOTAL PROTEIN 6.8 gm/dL (6.4-8.2); TRIGLYCERIDES 54 mg/dl (<150); VLDL CHOLESTEROL 11 mg/dL (6-40)
[2019-02-10 05:01] LABS: THYROID STIM HORMONE (HS) 0.885 uIU/ml (0.358-4.75)
--- NOTE | 2019-02-10 05:05 | NUR ---
PT RESTING IN BED WITH EYES CLOSED. NOT DISTURBED. RESP-EASY AND REGULAR. OXYGEN IN USE. CALL LIGHT IN REACH.
--- NOTE | 2019-02-10 05:15 | NUR ---
PT RESTING IN BED. C/O CHEST PAIN, RATES PAIN 4 ON PAIN SCALE 0-10. BP 130/98 MANUALLY, HR-78, PULSE OX 97%2L. CALLED DR. MENDEZ MADE AWARE OF EKG CHANGES AND REQUESTING SOMETHING ELSE FOR PAIN. NITRO ORDERED FOR CHEST PAIN.
--- NOTE | 2019-02-10 05:20 | NUR ---
MEDICATED WITH NITRO SUBLINGUAL PER ORDER. PT STATES PAIN IS 3 OR 4 ON PAIN SCALE 0-10. CALL LIGHT IN REACH.
--- NOTE | 2019-02-10 05:39 | NUR ---
PT STATES CHEST PAIN IS BETTER ALMOST GONE PER PT. RATES PAIN 2 ON PAIN SCALE 0-10. BP 134/90 MANUALLY. CALL LIGHT IN REACH.
--- NOTE | 2019-02-10 06:25 | NUR ---
BP 142/86 MANUALLY. PT DENIES CHEST PAIN AT THIS TIME. NITRO EFFECTIVE. CALL LIGHT IN REACH.
[2019-02-10 08:01] LABS: VITAMIN D, 25-HYDROXY 11.8 ng/mL (30-100)
--- NOTE | 2019-02-10 08:25 | NUR ---
DR. FAY'S OFFICE NOTIFIED OF CONSULT.
--- NOTE | 2019-02-10 11:58 | NUR ---
Glue Maker in to talk to patient. Patient states lives at HOME with ALONE. There are SEVERAL steps in the home. Physician: [facility]: [facility] Home health services: NONE Patient's level of ADLs: INDEPENDENT Patient has working utilities: ELECTRIC AND GAS OFF AT THIS TIME DME: [facility] Follow-up physician's appointment after d/c: WILL BE MADE BY HOSPITALIST NURSE DIRECTOR Does patient want to access PORTAL?: NO Discharge plan PT STATES HE LIVES ALONE AND IS INDEPENDENT IN CARE. DENIES ANY NEEDS ON DISCHARGE BUT THEN STATES HIS ELECTRIC AND GAS HAVE RECENTLY BEEN TURNED OFF. STATES HE WILL HAVE A RIDE HOME ON DISCHARGE. WILL CONTINUE TO FOLLOW. . ELIANA ANDRE
--- NOTE | 2019-02-10 13:46 | NUR ---
INFORMED CONSENT SIGNED FOR LEXISCAN STRESS TEST WITH DR. CHAN. RESTIG EKG SINUS BRADYCARDIA, HR 56, BP 134/64. PULSE OX 99% ON 2L/NC AND BREATH SOUNDS DIMINSHED BILATERALLY. COMPLETED ONE MINUTE OF LEXISCAN PROTOCOL RECEIVING LEXISCAN 0.4MG OVER 10 SECONDS. NO ARRHYTHMIAS OR ST CHANGES NOTED. PT C/O SOB AND WARM FEELING. LAST RECOVERY HR 87, BP 140/78. WAITING NUCLEAR SCANNING IN STABLE CONDITION.
--- NOTE | 2019-02-10 20:50 | NUR ---
PT RESTING IN BED WITH EYES CLOSED. AWAKENS EASILY. RESP-EASY AND REGULAR. OXYGEN IN USE. CALL LIGHT IN REACH. SEE SHIFT ASSESSMENT. NO C/O AT THIS TIME. MEDICATED WITH ATIVAN PER ROUTINE ORDER.
--- NOTE | 2019-02-10 22:00 | NUR ---
SLEEPING IN BED. RESP-EASY AND REGULAR. CALL LIGHT IN REACH.
[2019-02-11] VITALS: BP 117/64
--- NOTE | 2019-02-11 00:25 | NUR ---
SLEEPING IN BED, AWAKENS EASILY. TOLERATED ROUTINE ATIVAN PO PER ROUTINE ORDER FOR ANXIETY. CALL LIGHT IN REACH. DENIES CP. SEE SHIFT ASSESSMENT.
--- NOTE | 2019-02-11 01:30 | NUR ---
PT MEDICATION EFFECTIVE PT SLEEPING IN BED. RESP-EASY AND REGULAR. NO SIGNS OF ACUTE DISTRESS NOTED. CALL LIGHT IN REACH.
--- NOTE | 2019-02-11 04:00 | NUR ---
SLEEPING IN BED. RESP-EASY AND REGULAR. CALL LIGHT IN REACH.
--- NOTE | 2019-02-11 06:00 | NUR ---
SLEEPING IN BED. RESP-EASY AND REGULAR. CALL LIGHT IN REACH.
[2019-02-11 08:00] VITALS: BP 160/88
--- NOTE | 2019-02-11 08:55 | NUR ---
PT RESTING IN BED. NO DISTRESS NOTED. WILL MONITOR
--- NOTE | 2019-02-11 09:00 | NUR ---
PT GIVEN RESOURCES TO HELP WITH DISCONNECTED UTILITIES.
[2019-02-11] MEDS ORDERED: VITAMIN D32000 UNI1 PO (11:05)
--- NOTE | 2019-02-11 11:33 | NUR ---
Discharge instructions reviewed with patient/family. Patient receptive and verbalizes understanding. Follow-up care arranged. Written instructions given to patient/family. LOIS NAVARRETE
== END 2019-02-11 11:33 | disposition home or self-care (01) | DRG 392 ==
LOC: ED 15:07 → 5E 18:54 → EDHOLD 18:54 → 5E 19:51
PROVIDERS: Emergency Medicine; Student in an Organized Health Care Education/Training Program; ADMIT Emergency Medicine
DX: K21.9 Gastro-esophageal reflux disease without esophagitis (principal); E44.0 Moderate protein-calorie malnutrition; D68.59 Other primary thrombophilia; F10.920 Alcohol use, unspecified with intoxication, uncomplicated; K76.0 Fatty (change of) liver, not elsewhere classified; I10 Essential (primary) hypertension; E55.9 Vitamin D deficiency, unspecified; E87.8 Other disorders of electrolyte and fluid balance, not elsewhere classified; F17.210 Nicotine dependence, cigarettes, uncomplicated; I25.2 Old myocardial infarction; Z86.711 Personal history of pulmonary embolism; Z79.82 Long term (current) use of aspirin; Z79.899 Other long term (current) drug therapy; Z82.3 Family history of stroke; Z80.42 Family history of malignant neoplasm of prostate; Z68.26 Body mass index [BMI] 26.0-26.9, adult

== ENCOUNTER 2019-04-24 19:58 | Inpatient (IN) | payer SELFPAY ==
[~2019-04-24] VITALS: Ht 172.7 cm; Wt 81.7 kg
--- NOTE | ~2019-04-24 | EKG ---
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
--- NOTE | ~2019-04-24 | EKG ---
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
--- NOTE | ~2019-04-24 | PR ---
[place], [place] PROGRESS NOTE NAME: JUSTIN GIBSON UNIT #: [id number] ROOM: 505 DOCTOR: KELLIE SMART MD BIRTHDATE: [birth year] DOS: 04/28/2019 REASON FOR VISIT: Chest pain. SUBJECTIVE: The patient denies any exertional chest pain, but complaining of occasional intermittent chest pain at rest. No palpitations or dizziness. No PND or orthopnea. No cough. No fever or chills. REVIEW OF SYSTEMS: Review of 8 systems negative except as mentioned above. PHYSICAL EXAMINATION: VITAL SIGNS: Blood pressure 133/71, pulse 92, respiratory rate 18, weight 81.7 kilos. RHYTHM STRIPS: The patient in sinus rhythm. GENERAL: Alert, comfortable, in no acute distress. HEENT: Pupils are round and equal. No jaundice. NECK: Supple. No distended neck veins. No carotid bruit. CHEST: Symmetrical, nontender. LUNGS: Clear to auscultation. HEART: Regular rhythm, no S3, no palpable thrills. ABDOMEN: Bowel sounds normal. EXTREMITIES: Showed no edema. Distal pulses palpable. SKIN: Warm and dry. No cyanosis, no clubbing. RECTAL: Deferred. GENITOURINARY: Deferred. NEUROLOGIC: Alert with no focal neurologic deficit. LABORATORY DATA AND MEDICATIONS: Reviewed. IMPRESSION: 1. Chest pain, atypical, myocardial infarction ruled out. 2. History of coronary artery disease per patient, had a cardiac catheterization around 2009 in [place], report still pending. 3. Tobacco use. 4. Alcohol use. 5. Cocaine use. RECOMMENDATIONS: Blood pressure and heart rate are stable. Continue his aspirin and calcium channel blockers. Avoid beta ana due to cocaine use. The patient insisting on further testing for his chest pain. His reports again were requested from [place] for his cardiac catheterization in 2009. The patient did not get any stents per him. I would do a treadmill test to assess his chest pains on exertion, he had a pharmacologic stress test in February 2019. [place], [place] PROGRESS NOTE NAME: JUSTIN GIBSON UNIT #: [id number] ROOM: 505 DOCTOR: KELLIE SMART MD BIRTHDATE: [birth year] Based on a treadmill stress test, further recommendation will be made. This study is unremarkable, he can be discharged from the cardiac standpoint. If the stress test is abnormal with chest pain with significant EKG changes, then he will need further evaluation with cardiac catheterization. The above recommendation discussed with the patient and his family members at bedside. The patient counseled for risk factor modification including his smoking and using drugs and also drinking alcohol. Case was also briefly discussed with Dr. Araujo, his primary care physician during this admission. KELLIE SMART MD CM:PNTRANS [id number] KELLIE SMART MD 04/29/19 2243 interface
--- NOTE | ~2019-04-24 | PR ---
[place], [place] PROGRESS NOTE NAME: JUSTIN GIBSON [facility] #: [id number] UNIT #: [id number] ROOM: 505 DOCTOR: BERRY ABREU,JUANKD BIRTHDATE: [birth year] DOS: 04/29/2019 CARDIOLOGY PROGRESS NOTE REASON FOR VISIT: Chest pain. HISTORY OF PRESENT ILLNESS: The patient continued to complain of left-sided chest pain. This is constant pain. It is there, present all day, dull pain. No radiation. No associated symptoms. Denies any cough or fever. No hemoptysis. No PND, no orthopnea, no palpitations. REVIEW OF SYSTEMS: Review of the 8 systems negative except as mentioned above. PHYSICAL EXAMINATION: VITAL SIGNS: Blood pressure 150/90, pulse 89, respiratory rate 18, weight 81.7 kg, BMI 27. GENERAL: Alert, comfortable, in no acute distress. HEENT: Pupils are round and equal. NECK: Supple, no distended neck veins, no carotid bruit. CHEST: Symmetrical, nontender. LUNGS: Clear to auscultation bilaterally. HEART: Regular rhythm, no S3, no palpable thrills. ABDOMEN: Benign, nontender. Bowel sounds normal. EXTREMITIES: Showed no edema. Distal pulses palpable. SKIN: Warm and dry. No cyanosis, no clubbing. RECTAL: Deferred. GENITOURINARY: Deferred. REVIEW OF DIAGNOSTIC TESTS: His labs and medications reviewed. His previous reports from [facility] reviewed. The patient had several 2D echos in 10/2013, 04/2016, 10/2010 and also 08/2017, which showed normal LV function. The patient has a history of pericarditis in 2012. He had pulmonary emboli in 08/2017. IMPRESSION: 1. Recurrent chest pain, atypical, myocardial infarction ruled out. 2. History of pulmonary emboli in 08/2017. The patient was on anticoagulation for at least year and half. 3. Tobacco abuse. 4. Alcohol abuse. 5. Substance abuse with cocaine. 6. Questionable history of coronary artery disease. No documentation was found, but the patient has history of pericarditis in 2012. RECOMMENDATIONS: The patient was in the Emergency Room on 04/01/2019 in [place]. At that time, he had a CTA of the chest, which was negative for pulmonary emboli. I scheduled him for a treadmill stress test to see if he had any exertional chest pains or any EKG changes. He had a pulmonary stress test in 02/2019. [place], [place] PROGRESS NOTE NAME: JUSTIN GIBSON UNIT #: [id number] ROOM: [facility] DOCTOR: BERRY ABREU,KELLIE BIRTHDATE: [birth year] Risk-factor modification to quit smoking and drinking and using illicit drugs was discussed. If the treadmill is unremarkable, he can be discharged home from the cardiac standpoint. KELLIE SMART MD CM:PNTRANS [id number] KELLIE SMART MD 04/30/19 0650 interface
--- NOTE | ~2019-04-24 | EKG ---
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
--- NOTE | ~2019-04-24 | CON ---
[place], [place] REPORT OF CONSULTATION [id number] #: [id number] ROOM: 505 DOCTOR: ALEXANDER MARTIN BIRTHDATE: [birth year] DOS: 04/25/2019 CARDIOLOGY CONSULTATION REASON FOR CONSULTATION: Chest pain. REQUESTING PHYSICIAN: Dr. Hayes. HISTORY OF PRESENT ILLNESS: A 53-year-old male with a history of alcohol abuse, self-reported history of [place] in 2009 for which he has had a heart catheterization at [facility], states no stent was placed, does not remember what specific treatment he had. Also, he reports history of pericarditis, pulmonary embolism, presents for evaluation of chest pain. He was recently evaluated for chest pain in February of this year, at which time he had a pharmacological perfusion study which showed no evidence of ischemia and normal EF, had an echocardiogram as well that showed normal LV systolic function. The patient states for the past 2 days, he has had constant chest pain that feels like a gorilla is sitting on his chest, intermittently associated with diaphoresis and shortness of breath. He states he gets some numbness in his left arm. He states it has not gone away for 3 days. He states it feels similar to when he had his [place] in 2009. He said there were no aggravating or relieving factors. He also gets intermittent sharp pains along with it. He denied using alcohol or drugs when I asked him; however, his urine toxicology was positive for cocaine and blood ethanol level was elevated. REVIEW OF SYSTEMS: Complete review of systems is negative except as described above. PAST MEDICAL HISTORY: The patient reports history of pericarditis, pulmonary embolism, history of myocardial infarction. PAST SURGICAL HISTORY: Includes cholecystectomy and heart catheterization in 2009. SOCIAL HISTORY: He smokes a pack a day. He tells me he only drinks occasionally. He denies any illicit substance use. FAMILY HISTORY: No history of premature coronary artery disease. HOME MEDICATIONS: Currently includes lisinopril 20 mg daily. ALLERGIES: No known drug allergies. PHYSICAL EXAMINATION: VITAL SIGNS: Afebrile, pulse 76, respirations 18; blood pressure 154/128, previously 120/60; saturating 98% on room air. GENERAL APPEARANCE: Middle-aged black male, lying in bed, in no distress. ENT: Shows moist mucous membranes. NECK: Supple. JVP is normal. There are no carotid bruits. [place], [place] REPORT OF CONSULTATION NAME: JUSTIN GIBSON UNIT #: [id number] ROOM: 505 DOCTOR: ALEXANDER MARTIN BIRTHDATE: [birth year] RESPIRATORY: Lungs are clear. CARDIOVASCULAR: Regular rhythm with a normal rate. There are no murmurs. Chest wall is tender to palpation, but he said it does not affect the heaviness which is there constantly. It does, however, reproduce the sharp pain that he was having. ABDOMEN: Positive bowel sounds. Soft, nontender. EXTREMITIES: Warm, well perfused. There is no edema. Moves all extremities. SKIN: There are no lesions or rashes. NEUROLOGIC: Nonfocal. LABORATORY DATA: Hemoglobin 12.8, platelets 148, potassium 4.2, BUN 8 with a creatinine of 0.83. Hemoglobin A1c 5.5%. AST 66, ALT 96. Three sets of troponins have been less than 0.015. LDL cholesterol 78. Urine toxicology showed cocaine screen positive and alcohol level 257 in the blood. IMAGING: Chest x-ray showed no acute findings. CTA from 01/30/2019 showed no evidence of pulmonary embolism. Myocardial perfusion scan, pharmacological stress showed EF of 56% with normal perfusion with no evidence of fixed or reversible defects. Echocardiogram which was done today, though he also had one very recently last month, showed moderate left ventricular hypertrophy with vigorous LV systolic function and an EF of 65% to 70%, and a possibly mildly dilated ascending aorta at 3.6 cm, indexed to BSA 1.9 cm per meter squared. Diastolic parameters were normal. EKG from admission showed sinus tachycardia with a rate of 100 beats per minute, normal axis with normal intervals, increased voltage suggestive of LVH. Subsequent EKGs show continued sinus rhythm with nonspecific ST changes, but no acute ischemic changes. IMPRESSION: 1. Chest pain in the setting of cocaine abuse. No objective evidence of ischemia. Troponins are negative and no acute EKG changes. 2. Cocaine abuse. 3. Prior history of coronary artery disease, details unknown with a heart catheterization in 2009 from [facility]. 4. Reported history of PE, pericarditis. RECOMMENDATIONS: The patient presenting with chest pain in the setting of cocaine abuse, which he, however, denies. He has had constant chest pain for the past 2 days and has made no troponins. Certainly, no evidence of an acute coronary syndrome. It is well-known that cocaine can of course cause coronary vasospasm. I do not think a repeat stress test would be helpful at this time. I am also hesitant to send him for heart catheterization, though there are some concerning features of his chest pain. [place], [place] REPORT OF CONSULTATION NAME: JUSTIN GIBSON UNIT #: [id number] ROOM: 505 DOCTOR: ALEXANDER MARTNI BIRTHDATE: [birth year] At this time, I would recommend treating him conservatively with medication. I have also requested the heart catheterization report from [place] from 2009 to at least get a sense of what his coronary arteries looked like back then. He will need to be counseled on avoidance of cocaine. I would avoid beta-blockers and use something like amlodipine for his blood pressure if needed. Cardiac catheterization could be considered; however, I am not sure he would be a good candidate for dual antiplatelet therapy if he were to require a stent, so in the absence of objective ischemia I am inclined to continue to treat him conservatively and medically. Thank you for the consultation. Dr. ALEXANDER MARTIN MD CM:CONSTR:REPORT OF CONSULTATION 1328 04/26/19 0234 interface
--- NOTE | ~2019-04-24 | ST ---
[place], [place] EXERCISE STRESS TEST [facility]PORT [id number] #: [id number] ROOM: 505 DOCTOR: BERRY ABREU,KELLIE BIRTHDATE: [birth year] DOS: 04/29/2019 TREADMILL TEST REASON FOR TEST: Chest pain. PHYSICAL EXAMINATION NECK: Supple. LUNGS: Clear anteriorly. HEART: Regular rhythm. PROTOCOL: Levar protocol. TOTAL STRESS TIME: 5 minutes and 3 seconds. FINDINGS: Maximum heart rate 147, which is 88% target heart rate. Total METS, 7 METS. Wynn treadmill score +5. Peak blood pressure is 150/94. EKG: Resting EKG showed sinus rhythm. Stress EKG showed no ischemia, no arrhythmias. SYMPTOMS: The patient had resting chest pain and severity of 7/10. During treadmill, his pain was about 8/10 mostly, unchanged. The patient developed mild shortness of breath, resolved. CONCLUSION: Clinically, the patient has no significant chest pain compared to resting chest pain. EKG, nonischemic. POST-STRESS COMPLICATIONS: None. KELLIE SMART MD CM:STRESS:EXERCISE STRESS TEST REPORT [id number] KELLIE SMART MD
[~2019-04-24 19:58] MED LIST changes: +VITAMIN D32000 UNI1 PO
[2019-04-24 20:04] VITALS: BP 121/74
[2019-04-24 20:19] LABS: BASO % 0.7 % (0.0-1.0); EOS # 0.2 10*3/uL (0.0-0.4); HEMATOCRIT 39.5 % (42.0-52.0); HEMOGLOBIN 13.3 g/dl (14.0-18.0); LYMPH # 2.1 10*3/uL (1.3-4.4); LYMPH % 47.6 % (27.0-41.0); MEAN CELL VOLUME 102.3 fl (80.0-94.0); MEAN CORPUSCULAR HGB 34.5 pg (27.0-31.0); MEAN CORPUSCULAR HGB CONC 33.7 g/dl (33.0-37.0); MEAN PLATELET VOLUME 9.5 fl (9.6-12.3); MONO # 0.5 10*3/uL (0.1-1.0); MONO % 11.1 % (3.0-9.0); NEUT # 1.7 10*3/uL (2.3-7.9); NEUT % 36.6 % (47.0-73.0); PLATELET COUNT AUTOMATED 161 10*3/uL (130-400); RED BLOOD COUNT 3.86 10*6/uL (4.50-5.90); RED CELL DISTRI WIDTH 14.8 % (0-14.5); WHITE BLOOD COUNT 4.5 10*3/uL (4.8-10.8)
[2019-04-24 20:30] LABS: ACT PARTIAL THROMBO TIME 25.9 SECONDS (20.0-32.1); INTERNATIONAL NORM RATIO 0.9 (2.0-3.5)
[2019-04-24 20:35] LABS: ALBUMIN 3.7 gm/dl (3.1-4.5); ALKALINE PHOSPHATASE 83 U/L (45-117); BUN 9 mg/dl (7-24); CHLORIDE 105 mmol/L (98-107); CREATININE 0.86 mg/dL (0.70-1.30); POTASSIUM 3.4 mmol/L (3.5-5.1); SGOT/AST 73 IU/L (3-35); SGPT/ALT 108 U/L (12-78); SODIUM 140 mmol/L (136-145); TOTAL PROTEIN 7.8 gm/dL (6.4-8.2)
[2019-04-24 20:37] LABS: TROPONIN I < 0.015 ng/ml (<0.045)
[2019-04-24 20:54] VITALS: BP 122/59
[2019-04-24 21:04] LABS: BILIRUBIN NEGATIVE (NEGATIVE); BLOOD NEGATIVE (NEGATIVE); CLARITY CLEAR (CLEAR); COLOR YELLOW (YELLOW); GLUCOSE NEGATIVE (NEGATIVE); KETONE NEGATIVE (NEGATIVE); LEUKO ESTERASE NEGATIVE (NEGATIVE); NITRITE NEGATIVE (NEGATIVE); SPECIFIC GRAVITY <= 1.005 (1.005-1.030); UROBILINOGEN 0.2 E.U./dl (0.2-1.0)
[2019-04-24 21:14] LABS: URINE AMPHETAMINES < 1000 (1000ng/ml); URINE BARBITURATES < 200 (200ng/ml); URINE BENZODIAZEPINES < 200 (200ng/ml); URINE CANNABINOIDS (THC) < 50 (50ng/ml); URINE COCAINE > 300 (300ng/ml); URINE METHADONE < 300 (300ng/ml); URINE OPIATES < 300 (300ng/ml); URINE PHENCYCLIDINE < 25 (25ng/ml)
[2019-04-24 21:52] VITALS: BP 99/57
--- NOTE | 2019-04-24 21:52 | NUR ---
PT RESTING QUIETLY WITHOUT C/O---KRISTY HANCOCK RN
[2019-04-25] VITALS (9 sets, daily range): BP systolic 120–180; BP diastolic 60–128
--- NOTE | 2019-04-25 00:30 | NUR ---
A 53, admitted to , under the services of ROBERTO Robles DO with a diagnosis of PALPITATIONS AND CHEST PAIN. Chief complaint is CHES TPAIN. Patient arrived via bed from ER. Monitor applied. Initial assessment completed. Vital signs taken and recorded. ROBERTO ROBLES DO notified of admission to the unit. Orders received. See assessment for past medical history, medications and allergies. Patient and/or family oriented to unit. [facility] visitation policy reviewed. Clothing/patient valuable form completed. BELLE HOUSTON
--- NOTE | 2019-04-25 01:00 | NUR ---
NOTIFIED DR SANTIAGO THAT PATIENT STATES THAT HE HAS A HISTORY OF CHF AND THAT WE ARE BOLUSING A BAG OF FLUIDS, FOLLOWED BY MAINTENACE FLUIDS AT 100ML/HOUR. PT LUNGS CLEAR/DIMINISHED T/O. NO CRACKLES HEARD UPON AUSCULTATION. NO EDEMA. PHYSICIAN STATES THAT WE WILL LEAVE IV FLUID ORDERS IS AT THIS TIME. PATIENT NOTIFIED TO LET NURSES KNOW IF HE FEELS THAT HE IS BECOMING SHORT OF BREATH. WILL CONTINUE TO MONITOR PT.
--- NOTE | 2019-04-25 01:57 | NUR ---
PT MED REC UP TO DATE PER PT.
[2019-04-25 07:31] LABS: ALBUMIN 3.3 gm/dl (3.1-4.5); ALKALINE PHOSPHATASE 73 U/L (45-117); BUN 8 mg/dl (7-24); CHLORIDE 111 mmol/L (98-107); CHOLESTEROL 169 mg/dL (<200); CREATININE 0.83 mg/dL (0.70-1.30); HDL CHOLESTEROL 83 mg/dl (40-60); LDL CHOLESTEROL 78 mg/dL (9-159); PHOSPHOROUS 2.8 mg/dL (2.5-4.9); POTASSIUM 4.2 mmol/L (3.5-5.1); SGOT/AST 66 IU/L (3-35); SGPT/ALT 96 U/L (12-78); SODIUM 143 mmol/L (136-145); TRIGLYCERIDES 38 mg/dl (<150); VLDL CHOLESTEROL 8 mg/dL (6-40)
[2019-04-25 07:36] LABS: THYROID STIM HORMONE (HS) 0.404 uIU/ml (0.358-4.75)
[2019-04-25 07:41] LABS: BASO % 0.5 % (0.0-1.0); EOS # 0.2 10*3/uL (0.0-0.4); EOS % 4.1 % (1.0-4.0); HEMATOCRIT 38.7 % (42.0-52.0); HEMOGLOBIN 12.8 g/dl (14.0-18.0); LYMPH # 1.5 10*3/uL (1.3-4.4); LYMPH % 39.6 % (27.0-41.0); MEAN CELL VOLUME 102.4 fl (80.0-94.0); MEAN CORPUSCULAR HGB 33.9 pg (27.0-31.0); MEAN CORPUSCULAR HGB CONC 33.1 g/dl (33.0-37.0); MEAN PLATELET VOLUME 10.6 fl (9.6-12.3); MONO # 0.4 10*3/uL (0.1-1.0); MONO % 11.5 % (3.0-9.0); NEUT # 1.6 10*3/uL (2.3-7.9); PLATELET COUNT AUTOMATED 148 10*3/uL (130-400); RED BLOOD COUNT 3.78 10*6/uL (4.50-5.90); RED CELL DISTRI WIDTH 14.7 % (0-14.5); WHITE BLOOD COUNT 3.7 10*3/uL (4.8-10.8)
[2019-04-25 09:03] LABS: VITAMIN D, 25-HYDROXY 14.8 ng/mL (30-100)
--- NOTE | 2019-04-25 10:30 | NUR ---
PT OUT OF ROOM FOR STRESS TEST.
--- NOTE | 2019-04-25 13:20 | NUR ---
NOTIFIED THAT PT'S B/P WAS 158/110, PT ALSO WOULD LIKE TO EAT SINCE STRESS TEST WAS CANCELLED. ORDER GIVEN FOR CARDIAC DIET.
--- NOTE | 2019-04-25 15:41 | NUR ---
NOTIFIED DR. PALACIOS PT B/P 180/108 AND PT HAVING CP. DR. PALACIOS SAID TO CONTACT WAS UNABLE TO REACH DR. MARTIN IN THE CLINCI OR THROUGH ANSWERING SERVICE AT THIS TIME. THIS NURSE CALLED DR. PALACIOS BACK AND HE SAID RECHECK PT'S B/P AND HE WOULD LOOK AT PT'S CHART.
--- NOTE | 2019-04-25 16:09 | NUR ---
[place] Ophthalmologist in to talk to patient. Patient states lives at HOME with ALONE. There are FEW steps in the home. Physician: [facility] Pharmacy: [facility] health services: NONE Patient's level of ADLs: INDEPENDENT Patient has working utilities: YES DME: NONE Follow-up physician's appointment after d/c: WILL BE MADE BY HOSPITALIST NURSE DIRECTOR ON DISCHARGE Does patient want to access PORTAL?: NO Discharge plan PT LIVES AT HOME ALONE AND IS INDEPENDENT IN HIS CARE. DENIES ANY NEEDS ON DISCHARGE. STATES HE IS NOT SURE IF HE WILL HAVE A RIDE HOME OR NOT. WILL CONTINUE TO FOLLOW.. ELIANA ANDRE
--- NOTE | 2019-04-25 19:55 | NUR ---
PT RESTING IN BED. RESP-EASY AND REGULAR.IVF INFUSING WITH NO PROBLEM. NO C/O AT THIS TIME. CALL LIGHT IN REACH. SEE SHIFT ASSESSMENT.
--- NOTE | 2019-04-25 22:10 | NUR ---
PT TOLERATED ROUTINE MED WITH NO PROBLEM. IVF INFUSING WITH NO PROBLEM. CALL LIGHT IN REACH.
--- NOTE | 2019-04-25 22:30 | NUR ---
PATIENT REQUESTING TYLENOL FOR GENERAL MUSCLE ACHES. TYLENOL ADMINISTERED PRESCRIBED. WILL MONITOR FOR EFFECTIVENESS.
[2019-04-26] VITALS: BP 156/96
--- NOTE | 2019-04-26 04:00 | NUR ---
SLEEPING IN BED. RESP-EASY AND REGULAR. CALL LIGHT IN REACH.
--- NOTE | 2019-04-26 06:00 | NUR ---
PT TOLERATED ROUTINE MED WITH NO PROBLEM. NO C/O AT THIS TIME. IVF INFUSING WITH NO PROBLEM. CALL LIGHT IN REACH.
[2019-04-26 06:16] LABS: BASO % 0.3 % (0.0-1.0); HEMATOCRIT 39.9 % (42.0-52.0); HEMOGLOBIN 13.4 g/dl (14.0-18.0); LYMPH # 0.5 10*3/uL (1.3-4.4); LYMPH % 17.3 % (27.0-41.0); MEAN CELL VOLUME 101.8 fl (80.0-94.0); MEAN CORPUSCULAR HGB 34.2 pg (27.0-31.0); MEAN CORPUSCULAR HGB CONC 33.6 g/dl (33.0-37.0); MEAN PLATELET VOLUME 10.9 fl (9.6-12.3); MONO # 0.1 10*3/uL (0.1-1.0); NEUT # 2.5 10*3/uL (2.3-7.9); NEUT % 80.4 % (47.0-73.0); PLATELET COUNT AUTOMATED 153 10*3/uL (130-400); RED BLOOD COUNT 3.92 10*6/uL (4.50-5.90); WHITE BLOOD COUNT 3.1 10*3/uL (4.8-10.8)
[2019-04-26 06:23] LABS: ALBUMIN 3.6 gm/dl (3.1-4.5); ALKALINE PHOSPHATASE 80 U/L (45-117); BUN 7 mg/dl (7-24); CHLORIDE 103 mmol/L (98-107); CREATININE 0.91 mg/dL (0.70-1.30); POTASSIUM 3.5 mmol/L (3.5-5.1); SGOT/AST 55 IU/L (3-35); SGPT/ALT 91 U/L (12-78); SODIUM 138 mmol/L (136-145); TOTAL PROTEIN 7.8 gm/dL (6.4-8.2)
[2019-04-26 08:00] VITALS: BP 154/80
[2019-04-26 12:00] VITALS: BP 144/88
[2019-04-26 15:28] VITALS: BP 162/88
--- NOTE | 2019-04-26 15:29 | NUR ---
CALLED TO ROOM, REQUESTING TYLENOL FOR CHEST DISCOMFORT AND BP CHECK. MANUAL BP 162/88. SEE MAR.
--- NOTE | 2019-04-26 15:32 | NUR ---
NOTIFIED . NEW ORDER FOR 20MG LISINOPRIL REC'D FOR A TOTAL OF 40MG TODAY. SEE MAR.
[2019-04-26 16:00] VITALS: BP 155/91
--- NOTE | 2019-04-26 16:30 | NUR ---
PATIENT RESTING QUIETLY IN BED. NO DISTRESS NOTED. DENIESA ANY CHEST PAIN/DISCOMFORT AT THIS TIME. SLIGHT IMPROVEMENT TO BP. WILL CONTINUE TO MONITOR. NO VOICED COMPLAINTS.
[2019-04-26 20:00] VITALS: BP 139/88; BP 142/70
--- NOTE | 2019-04-26 23:30 | NUR ---
PATIENT RESTING WITH EYES CLOSED. CALL LIGHT WITHIN REACH. WILL MONITOR.
[2019-04-27] VITALS: BP 140/80
[2019-04-27 06:22] LABS: ALBUMIN 3.6 gm/dl (3.1-4.5); BUN 8 mg/dl (7-24); CHLORIDE 103 mmol/L (98-107); POTASSIUM 3.6 mmol/L (3.5-5.1); SODIUM 137 mmol/L (136-145); TOTAL PROTEIN 7.6 gm/dL (6.4-8.2)
[2019-04-27 06:33] LABS: ALKALINE PHOSPHATASE 68 U/L (45-117); CREATININE 0.79 mg/dL (0.70-1.30); SGOT/AST 24 IU/L (3-35); SGPT/ALT 70 U/L (12-78)
[2019-04-27 07:00] LABS: HEMATOCRIT 38.6 % (42.0-52.0); HEMOGLOBIN 13.2 g/dl (14.0-18.0); MEAN CELL VOLUME 101.3 fl (80.0-94.0); MEAN CORPUSCULAR HGB 34.6 pg (27.0-31.0); MEAN CORPUSCULAR HGB CONC 34.2 g/dl (33.0-37.0); MEAN PLATELET VOLUME 10.8 fl (9.6-12.3); PLATELET COUNT AUTOMATED 153 10*3/uL (130-400); RED BLOOD COUNT 3.81 10*6/uL (4.50-5.90)
[2019-04-27 07:55] VITALS: BP 138/88
[2019-04-27 08:07] LABS: PLATELET SUFFICIENCY NORMAL (NORMAL); POLYCHROMASIA SLIGHT; TOTAL CELLS COUNTED 100 #CELLS
[2019-04-27 12:00] VITALS: BP 137/89
[2019-04-27 16:00] VITALS: BP 150/88
[2019-04-27 18:00] VITALS: BP 150/88
--- NOTE | 2019-04-27 19:21 | NUR ---
24 HR chart check completed.
[2019-04-27 20:00] VITALS: BP 137/85; BP 138/80
--- NOTE | 2019-04-27 21:13 | NUR ---
PATIENT REQUESTING TYLENOL FOR GENERAL ACHES. ADMINISTERED PRESCRIBED. WILL MONITOR FOR EFFECTIVENESS.
--- NOTE | 2019-04-27 21:15 | NUR ---
PATIENT IV LEAKING. DISCONTINUED.
--- NOTE | 2019-04-27 22:13 | NUR ---
PATIENT STATES THAT TYLENOL WAS EFFECTIVE. WILL MONITOR.
--- NOTE | 2019-04-27 22:30 | NUR ---
IV started right antecubital with #22 angiocath after 2 attempts. The IV site was prepped with Chloraprep. Heparin lock attached. Sterile dressing applied. Patient tolerated precedure well. Procedure performed according to [facility] policy & procedure. BELLE ANDRE
[2019-04-28] VITALS: BP 139/85
--- NOTE | 2019-04-28 04:11 | NUR ---
PATIENT RESTING WITH EYES CLOSED. RESPIRATIONS EASY AND UNLABORED.CALL LUGHT WITHIN REACH. WILL MONITOR.
[2019-04-28 06:31] LABS: HEMOGLOBIN 13.2 g/dl (14.0-18.0); MEAN CELL VOLUME 101.6 fl (80.0-94.0); MEAN CORPUSCULAR HGB 34.4 pg (27.0-31.0); MEAN CORPUSCULAR HGB CONC 33.8 g/dl (33.0-37.0); MEAN PLATELET VOLUME 10.6 fl (9.6-12.3); PLATELET COUNT AUTOMATED 151 10*3/uL (130-400); RED BLOOD COUNT 3.84 10*6/uL (4.50-5.90); RED CELL DISTRI WIDTH 14.2 % (0-14.5); WHITE BLOOD COUNT 10.3 10*3/uL (4.8-10.8)
[2019-04-28 06:51] LABS: PLATELET SUFFICIENCY NORMAL (NORMAL); TARGET CELLS FEW; TOTAL CELLS COUNTED 100 #CELLS
[2019-04-28 06:52] LABS: POLYCHROMASIA SLIGHT
[2019-04-28 08:00] VITALS: BP 120/70
[2019-04-28 12:00] VITALS: BP 133/71
--- NOTE | 2019-04-28 12:24 | NUR ---
PATIENT CONTINUES TO C/O WHEN ASKED ABOUT MIDSTERNAL SHARP CHEST PAIN THAT IS CONTINUOUS W/ LEFT ARM TINGLING. PAIN INCREASES WITH ACTIVITY BUT NOT WHEN PRESSURE APPLIED TO CHEST OR WITH DEEP BREATHS
--- NOTE | 2019-04-28 12:59 | NUR ---
NO CHANGE IN PAIN WITH OXYGEN - REFAXING REQUEST FOR INFO TO [employer] THEY SENT NO CARDIAC ONLY ABOUT PE'S. MESSAGE LEFT IN OFFIE ABOUT CONSULT
--- NOTE | 2019-04-28 13:50 | NUR ---
PT CONTINUES TO DENY NEEDS AT HOME ON DISCHARGE. WILL CONTINUE TO FOLLOW.
[2019-04-28 16:00] VITALS: BP 130/83
--- NOTE | 2019-04-28 19:51 | NUR ---
Patient lying in bed, stated that he still has chest pressure rates about a 7/10. At times radiates into left arm and it makes it tingle/numb. Patient aware of npo status at midnight for stress in the am. Patient requested a snack before midnight. Patient left with call light in reach.
[2019-04-28 20:00] VITALS: BP 168/92
--- NOTE | 2019-04-28 22:15 | NUR ---
24 HR chart check completed.
[2019-04-29] VITALS: BP 156/90
--- NOTE | 2019-04-29 09:21 | NUR ---
TO CARDIAC REHAB FOR STRESS TEST
--- NOTE | 2019-04-29 10:55 | NUR ---
INFORMED CONSENT SIGNED FOR STANDARD STRESS TEST WITH DR. SMART. RESTING EKG NSR, HR 67, BP 132/100. COMPLETED 5:03 OF A STANDARD CORY PROTOCOL COMPLETING 2:03 STAGE II, 2.5 MPH/12% GRADE. PEAK HEART RATE OF 147 ACHIEVED WHICH IS 89% PREDICTED MAXIMUM AND A PEAK BP OF 150/94. TEST TERMINATED D/T FATIGUE. NO ARRHYTHMIAS OR ST CHANGES NOTED. PT DID C/O SOB AND INCREASE OF CHEST PAIN RATING 8.5. HAS A FAIR EXERCISE TOLERANCE. DECREASED TO 8 AT 3:30 RECOVERY. LAST RECOVERY HR 96, BP 144/100. THIS IS A NEGATVIE STRESS TEST. RETURNED TO 505-2 IN STABLE CONDITION.
[2019-04-29 12:00] VITALS: BP 141/86
--- NOTE | 2019-04-29 12:51 | NUR ---
PT WILL HAVE NO NEEDS ON DISCHARGE. WILL CONTINUE TO FOLLOW.
--- NOTE | 2019-04-29 13:33 | NUR ---
DR NICK MAGAÑA
[2019-04-29] MEDS ORDERED: Zestril,Prinivi40 MG PO (15:52)
[2019-04-29] MEDS ORDERED: ASPIRIN CHEWABL81 M1 PO (15:52)
[2019-04-29] MEDS ORDERED: NORVASC10 MG PO (15:52)
[2019-04-29] MEDS ORDERED: VITAMIN D5000 UNI1 PO (15:52)
[2019-04-29] MEDS ORDERED: VITAMIN B1250 MCG PO (15:52)
--- NOTE | 2019-04-29 16:10 | NUR ---
Hep Lock discontinued. Site asymptomatic. Pressure applied. Sterile dressing applied. GUERDA NO Discharge instructions reviewed with patient/family. Patient receptive and verbalizes understanding. Follow-up care arranged. Written instructions given to patient/family. GUERDA NO
--- NOTE | 2019-04-29 16:12 | NUR ---
AMBULATED OUT WITH BELONGINGS & DC INSTRUCTIONS
== END 2019-04-29 16:12 | disposition home or self-care (01) | DRG 918 ==
LOC: ED 19:58 → 5E 23:25 → EDHOLD 23:25 → 5E 23:42
PROVIDERS: Emergency Medicine; Family Medicine; Student in an Organized Health Care Education/Training Program; ADMIT Internal Medicine
DX: T40.5X1A Poisoning by cocaine, accidental (unintentional), initial encounter (principal); F10.99 Alcohol use, unspecified with unspecified alcohol-induced disorder; E83.41 Hypermagnesemia; E87.6 Hypokalemia; I10 Essential (primary) hypertension; D53.9 Nutritional anemia, unspecified; M17.11 Unilateral primary osteoarthritis, right knee; F10.920 Alcohol use, unspecified with intoxication, uncomplicated; R00.2 Palpitations; R73.9 Hyperglycemia, unspecified; D72.819 Decreased white blood cell count, unspecified; D72.820 Lymphocytosis (symptomatic); D72.821 Monocytosis (symptomatic); J30.2 Other seasonal allergic rhinitis; R74.0 Nonspecific elevation of levels of transaminase and lactic acid dehydrogenase [LDH]; E55.9 Vitamin D deficiency, unspecified; K76.0 Fatty (change of) liver, not elsewhere classified; I25.10 Atherosclerotic heart disease of native coronary artery without angina pectoris; I25.2 Old myocardial infarction; Z72.0 Tobacco use; Z79.899 Other long term (current) drug therapy; Z87.01 Personal history of pneumonia (recurrent); Z90.49 Acquired absence of other specified parts of digestive tract; Z83.3 Family history of diabetes mellitus; Z82.3 Family history of stroke; Z80.42 Family history of malignant neoplasm of prostate; Z86.711 Personal history of pulmonary embolism; Z71.6 Tobacco abuse counseling; Y92.89 Other specified places as the place of occurrence of the external cause

== ENCOUNTER 2021-06-08 19:24 | Emergency (ER) | payer OTHER ==
[~2021-06-08] VITALS: Ht 172.7 cm; Wt 88.5 kg
[~2021-06-08 19:24] MED LIST changes: +ASPIRIN CHEWABL81 M1 PO; +NORVASC10 MG PO; +VITAMIN B1250 MCG PO; +VITAMIN D5000 UNI1 PO; +Zestril,Prinivi40 MG PO
[2021-06-08] MEDS ORDERED: NAPROXEN250 MG PO (19:54)
[2021-06-08] MEDS ORDERED: METHOCARBAMOL750 M1 PO (19:54)
== END 2021-06-08 19:56 | disposition home or self-care (01) ==
LOC: ED 19:24
DX: S39.012A Strain of muscle, fascia and tendon of lower back, initial encounter (principal); F17.200 Nicotine dependence, unspecified, uncomplicated; X58.XXXA Exposure to other specified factors, initial encounter; Y93.89 Activity, other specified; Y92.89 Other specified places as the place of occurrence of the external cause; Y99.8 Other external cause status

== ENCOUNTER 2021-07-14 18:14 | Emergency (ER) | payer OTHER ==
[~2021-07-14] VITALS: Ht 172.7 cm; Wt 86.2 kg
[~2021-07-14 18:14] MED LIST changes: +METHOCARBAMOL750 M1 PO; +NAPROXEN250 MG PO
== END 2021-07-14 23:29 | disposition home or self-care (01) ==
LOC: ED 18:14
DX: R05.9 Cough, unspecified (principal); Z20.822 Contact with and (suspected) exposure to COVID-19; R50.9 Fever, unspecified

== ENCOUNTER 2021-08-22 15:08 | Emergency (ER) | payer OTHER ==
[~2021-08-22] VITALS: Ht 172.7 cm; Wt 81.6 kg
== END 2021-08-22 17:57 | disposition left against medical advice (07) ==
LOC: ED 15:08
DX: Z53.21 Procedure and treatment not carried out due to patient leaving prior to being seen by health care provider (principal)

== ENCOUNTER 2022-06-30 17:19 | Emergency (ER) | payer OTHER ==
[~2022-06-30] VITALS: Ht 172.7 cm; Wt 79.4 kg
[2022-06-30 18:14] LABS: BILIRUBIN Negative (Negative); BLOOD Negative (Negative); CLARITY Clear (Clear); COLOR Yellow (Yellow); GLUCOSE Negative (Negative); KETONE Negative (Negative); LEUKO ESTERASE Negative (Negative); NITRITE Negative (Negative); PH 5.5 (4.5-8.0); SPECIFIC GRAVITY <= 1.005 (1.001-1.030)
[2022-06-30 18:25] LABS: BACTERIA TRACE; EPITHELIAL CELLS 0-2; WBC 0-2 wbc/hpf (0-5)
[2022-06-30 19:22] LABS: BASO % 0.5 % (0.0-1.0); EOS % 0.7 % (1.0-4.0); HEMATOCRIT 37.2 % (42.0-52.0); LYMPH # 1.6 10*3/uL (1.3-4.4); LYMPH % 25.9 % (27.0-41.0); MEAN CELL VOLUME 99.2 fl (80.0-94.0); MEAN CORPUSCULAR HGB 33.1 pg (27.0-31.0); MEAN CORPUSCULAR HGB CONC 33.3 g/dl (33.0-37.0); MEAN PLATELET VOLUME 9.8 fl (9.6-12.3); MONO # 0.7 10*3/uL (0.1-1.0); MONO % 11.8 % (3.0-9.0); NEUT # 3.7 10*3/uL (2.3-7.9); NEUT % 60.9 % (47.0-73.0); PLATELET COUNT AUTOMATED 146 10*3/uL (130-400); RED BLOOD COUNT 3.75 10*6/uL (4.50-5.90); RED CELL DISTRI WIDTH 14.4 % (0-14.5); WHITE BLOOD COUNT 6.1 10*3/uL (4.8-10.8)
[2022-06-30 19:38] LABS: ALKALINE PHOSPHATASE 88 U/L (45-117); BUN 6 mg/dl (7-24); CHLORIDE 102 mmol/L (98-107); CREATININE 0.65 mg/dL (0.70-1.30); LIPASE 464 U/L (73-393); POTASSIUM 3.2 mmol/L (3.5-5.1); SGPT/ALT 101 U/L (12-78); SODIUM 138 mmol/L (136-145); TOTAL PROTEIN 8.1 gm/dL (6.4-8.2)
[2022-06-30] MEDS ORDERED: ONDANSETRON4 MG SL (21:50)
== END 2022-06-30 22:16 | disposition home or self-care (01) ==
LOC: ED 17:19
PROVIDERS: Physician Assistant
DX: A08.4 Viral intestinal infection, unspecified (principal); R74.01 Elevation of levels of liver transaminase levels; Z90.49 Acquired absence of other specified parts of digestive tract; Z87.891 Personal history of nicotine dependence